=== PATIENT | female | born 1985 | race Caucasian/White ===

== ENCOUNTER 2017-03-03 12:27 | Emergency (ER) | payer BC, OTHER ==
[2017-03-03 12:43] VITALS: TEMP 98.6
--- NOTE | 2017-03-03 12:56 | ED ---
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 States it was a small isolated shaft where someone was power washing in painting. States was lots of fumes. States there were down there for approximately 20-30 minutes. States upon eating back up to the surface area had slight headache. Still admits to headache at this time. Denies any other complaints or symptoms. States that flared crew arrived after them did have a CO2 monitor which did go off. [facility] work required her partner to come here to be checked. Patient denies any recent fever, chills, shortness of breath, chest pain, back pain, abdominal pain, nausea or vomiting, numbness or tingling, dysuria or hematuria, constipation or diarrhea, visual changes, or any other complaints. - Related Data Previous Rx's Medication Instructions Recorded Lidocaine Viscous [Xylocaine 5 ml PO Q3HR PRN #100 ml 09/17/15 Viscous 2%] Penicillin V Potassium [Pen Vee K] 500 mg PO QID #28 tab 09/17/15 Allergies Allergy/AdvReac Type Severity Reaction Status Date / Time No Known Allergies Allergy Verified 03/03/17 12:42 Review of Systems ROS Statement: Those systems with pertinent positive or pertinent negative responses have been documented in the HPI. ROS Other: All systems not noted in ROS Statement are negative. Past Medical History Past Medical History: No Reported History History of Any Multi-Drug Resistant Organisms: None Reported Past Surgical History: Orthopedic Surgery Past Psychological History: No Psychological Hx Reported Smoking Status: Current every day smoker Past Alcohol Use History: None Reported Past Drug Use History: None Reported General Exam - General Exam Comments Initial Comments: General: The patient is awake and alert, in no distress, and does not appear acutely ill. Eye: Pupils are equal, round and reactive to light, extra-ocular movements are intact. No nystagmus. There is normal conjunctiva bilaterally. No signs of icterus. Ears, nose, mouth and throat: There are moist mucous membranes and no oral lesions. Neck: The neck is supple, there is no tenderness or JVD. Cardiovascular: There is a regular rate and rhythm. No murmur, rub or gallop is appreciated. Respiratory: Lungs are clear to auscultation, respirations are non-labored, breath sounds are equal. No wheezes, stridor, rales, or rhonchi. Musculoskeletal: Normal ROM, no tenderness. Strength 5/5. Sensation intact. Pulses equal bilaterally 2+. Neurological: A&O x 3. CN II-XII intact, There are no obvious motor or sensory deficits. Coordination appears grossly intact. Speech is normal. Skin: Skin is warm and dry and no rashes or lesions are noted. Psychiatric: Cooperative, appropriate mood & affect, normal judgment. Limitations: no limitations Course Vital Signs 03/03/17 03/03/17 03/03/17 12:40 12:48 13:05 Temperature 98.6 F Pulse Rate 80 70 Respiratory 18 16 Rate Blood Pressure 122/66 134/74 O2 Sat by Pulse 99 100 98 Oximetry Medical Decision Making - Medical Decision Making Patient's carboxyhemoglobin level were 4.9 and emergency room. Patient was on oxygen while lab is pending. She reexamined at this time shows no signs of stress states she is feeling better. Will be discharged home. Advised return for any concerns. - Lab Data Lab Results 03/03/17 Range/Units 13:05 Carbon Monoxide, Quant 4.9 (<10.0) % Disposition Clinical Impression: Carbon monoxide exposure Disposition: HOME SELF-CARE Condition: Good Instructions: Carbon Monoxide Poisoning (ED) Additional Instructions: Please use medication as discussed. Please follow-up with family doctor in the next 2 days of symptoms have not improved. Please return to emergency room if the symptoms increase or worsen or for any other concerns. Referrals: Nava Moncada DO [Primary Care Provider] - 1-2 days Time of Disposition: 13:42
[2017-03-03 13:06] VITALS: BP 134/74; PULSE 70; RESP 16
== END 2017-03-03 13:47 | disposition home or self-care (01) ==
LOC: EC 12:27
DX: R51 Headache (principal); Z57.5 Occupational exposure to toxic agents in other industries; F17.200 Nicotine dependence, unspecified, uncomplicated
CPT/HCPCS: 82375; 99283

== ENCOUNTER 2017-08-21 12:30 | Outpatient (CLI) | payer BC ==
[2017-08-21 12:56] VITALS: BP 110/57; PULSE 103; RESP 18; TEMP 98.2
[2017-08-21] MEDS ORDERED: ONDANSETRON 4 MG/2 ML VIAL IVP STA (13:08)
[2017-08-21] MEDS: LACTATED RINGERS 1,000 ML IV SCH ×2 (13:09→13:38)
[2017-08-21 13:18] LABS: Basophils % (A) 0 %; CH 30.1; CHCM 32.8; Eosinophils # (A) 0.1 k/uL (0-0.7); Eosinophils % (A) 1 %; HCT 34.9 % (34.0-46.0); HDW 2.24; HGB 11.2 gm/dL (11.4-16.0); Luc # (Auto) 0.12; Luc % (Auto) 1; Lymphocytes # (A) 1.1 k/uL (1.0-4.8); Lymphocytes % (A) 12 %; MCH 29.7 pg (25.0-35.0); MCHC 32.2 g/dL (31.0-37.0); MCV 92.3 fL (80.0-100.0); Mean Platelet Volume 7.1; Monocytes # (A) 0.6 k/uL (0-1.0); Monocytes % (A) 6 %; Neutrophils # (A) 7.2 k/uL (1.3-7.7); Neutrophils % (A) 79 %; RBC 3.78 m/uL (3.80-5.40); RDW 14.7 % (11.5-15.5); WBC 9.1 k/uL (3.8-10.6); WBC (Perox) 9.38
--- NOTE | 2017-08-30 13:04 | P.MSEPDOC ---
Presenting Problems - Arrival Data Date of Arrival on Unit: 08/21/17 Time of Arrival on Unit: 12:30 Mode of Transport: Ambulatory - Complaint OB-Reason for Admission/Chief Complaint: Possible Onset of Labor, Acute Nausea/ Vomiting Comment: 08/20 1500 cramping Medical History - Information : 3 Para: 2 Term: 2 : 0 Abortions: Spontaneous or Elective: 0 Number of Living Children: 2 - Gestational Age Gestational Age by GARETH (wks/days): 22 Weeks and 1 Days Review of Systems - Review of Systems Constitutional: No problems Breast: No problems ENT: No problems Cardiovascular: No problems Respiratory: No problems Gastrointestinal: No problems Genitourinary: No problems Musculoskeletal: No problems Neurological: Dizziness Skin: No problems Vital Signs - Temperature Temperature: 98.2 F Temperature Source: Temporal Artery Scan - Pulse Right Pulse Rate: 103 Pulse Assessment Method: Automatic Cuff - Respirations Respiratory Rate: 18 Oxygen Delivery Method: Room Air O2 Sat by Pulse Oximetry: 100 - Blood Pressure Right Arm Blood Pressure: 110/57 Blood Pressure Mean: 74 Blood Pressure Source: Automatic Cuff Medical Screen Scoring (Pre) - Cervical Exam Dilation: Exam Deferred - Uterine Contractions Frequency: N/A Duration: N/A Intensity: N/A - Maternal Vital Signs Maternal Temperature: N/A Maternal Blood Pressure: N/A Signs of Preeclampsia: N/A Maternal Respirations: N/A - Pain Assessment Pain Location and Character: Abdomen Pain Scale Used: Numeric (1 - 10) Pain Intensity: 5 Pain Description: *Acute, Cramping Pain Frequency: Intermittent Pain Duration: 1 Pain Duration Units: Days Pain Behavior: Facial Grimacing, Nausea Pain Aggravating Factors: Activity, Contractions Non-Pharmacological Interventions: Darkened Room, Emotional/Spiritual Support, Reduce Environmental Stimuli, Relaxation Technique - Maternal Trauma Maternal Trauma: N/A - Assessment Baseline FHR: 140 Heart Rate - NICHD Category: Category I (Normal) = 0 Position: N/A Station: N/A - Total Score Total Score (Pre): 0 - Level of Risk Level of Risk: Low (0-5) Medical Screen Scoring (Post) - Maternal Trauma Maternal Trauma: N/A - Assessment Heart Rate - NICHD Category: Category I (Normal) = 0 - Total Score Total Score (Post): 0 - Post Treatment Level of Risk Post Treatment Level of Risk: Low (0-5) Physician Notification (Post) - Physician Notified Physician Notified Date: 08/21/17 Physician Notified Time: 14:14 Spoke With: Dane New Order Received: Yes (finish fluids and d/c if feeling better) - Notification Comment Comment: nausea/vomit cramping, fluids, cbc wnl, could not provide UA Disposition - Disposition OB Disposition: Triage, Discharge to home, Written follow up instructions reviewed Discharge Date: 08/21/17 Discharge Time: 14:50 I agree with the RN Medical Screening Exam: Yes Risk & Benefit of care provided described in d/c instruction: Yes Diagnosis: VOMITING OF , UNSPECIFIED
== END 2017-08-21 14:50 | disposition home or self-care (01) ==
LOC: FBPOP 12:30
PROVIDERS: ATTEND Obstetrics & Gynecology
DX: O21.9 Vomiting of pregnancy, unspecified (principal); Z3A.22 22 weeks gestation of pregnancy
CPT/HCPCS: 99214; 96360; 96361; 96375; 85025; J2405

== ENCOUNTER 2017-12-15 23:25 | Outpatient (CLI) | payer BC ==
[2017-12-15 23:53] VITALS: BP 131/65; PULSE 113; RESP 16; TEMP 97.9
[2017-12-16] MEDS ORDERED: BUTORPHANOL 1 MG/ML 1 ML VIAL IV PRN (01:35)
[2017-12-16] MEDS ORDERED: LACTATED RINGERS 1,000 ML IV SCH (01:45)
--- NOTE | 2017-12-28 11:00 | P.MSEPDOC ---
Presenting Problems - Arrival Data Date of Arrival on Unit: 12/15/17 Time of Arrival on Unit: 23:23 Mode of Transport: Wheelchair - Complaint OB-Reason for Admission/Chief Complaint: Possible Onset of Labor Comment: Pt states contractions became every 4-6 mins around 1630 tonight and have increased in intensity since 2029 Medical History - Information : 3 Para: 2 Term: 2 : 0 Abortions: Spontaneous or Elective: 0 Number of Living Children: 2 - Gestational Age Gestational Age by GARETH (wks/days): 38 Weeks and 5 Days Review of Systems - Review of Systems Constitutional: No problems Breast: No problems ENT: No problems Cardiovascular: No problems Respiratory: No problems Gastrointestinal: No problems Genitourinary: No problems Musculoskeletal: No problems Neurological: No problems Skin: No problems Vital Signs - Temperature Temperature: 97.9 F Temperature Source: Temporal Artery Scan - Pulse Pulse Oximetery Pulse Rate: 113 Pulse Assessment Method: Pulse Oximetry - Respirations Respiratory Rate: 16 Oxygen Delivery Method: Room Air O2 Sat by Pulse Oximetry: 97 - Blood Pressure Right Arm Blood Pressure: 131/65 Blood Pressure Mean: 87 Blood Pressure Source: Automatic Cuff Medical Screen Scoring (Pre) - Cervical Exam Dilation: 1-3 cm = 1 Membranes: Intact - Uterine Contractions Frequency: > or = 36 weeks =2 Duration: N/A Intensity: N/A - Maternal Vital Signs Maternal Temperature: N/A Maternal Blood Pressure: N/A Signs of Preeclampsia: N/A Maternal Respirations: N/A - Pain Assessment Pain Location and Character: Abdomen Pain Scale Used: Numeric (1 - 10) Pain Intensity: 7 Pain Management Goal: 2 Pain Description: *Acute Pain Radiation Location: lower back Pain Frequency: Intermittent Pain Duration: 7 Pain Duration Units: Hours Pain Behavior: Facial Grimacing, Fidgeting, Vocalization Pain Aggravating Factors: Contractions - Maternal Trauma Maternal Trauma: N/A - Assessment Baseline FHR: 135 Heart Rate - NICHD Category: Category I (Normal) = 0 NST: Reactive Position: N/A Station: N/A - Total Score Total Score (Pre): 3 - Level of Risk Level of Risk: Low (0-5) Physician Notification (Pre) - Physician Notified Physician Notified Date: 12/16/17 Physician Notified Time: 00:43 Physician/Practitioner Notifed:: Lensmeyer New Order Received: Yes Medical Screen Scoring (Post) - Cervical Exam Dilation: 1-3 cm = 1 Membranes: Intact - Uterine Contractions Frequency: > 5 minutes apart = 1 Duration: N/A Intensity: N/A - Maternal Vital Signs Maternal Temperature: N/A Maternal Blood Pressure: N/A Signs of Preeclampsia: N/A Maternal Respirations: N/A - Pain Assessment Pain Location and Character: Back, Abdomen Pain Scale Used: Numeric (1 - 10) Pain Intensity: 5 Pain Management Goal: 2 Pain Description: *Acute Pain Radiation Location: lower back Pain Frequency: Intermittent Pain Duration: 12 Pain Duration Units: Hours Pain Behavior: Decreased Sleep, Fidgeting, Moving Slowly Pain Aggravating Factors: Contractions - Maternal Trauma Maternal Trauma: N/A - Assessment Heart Rate: 135 Heart Rate - NICHD Category: Category I (Normal) = 0 NST: Reactive Position: N/A Station: N/A - Total Score Total Score (Post): 2 - Post Treatment Level of Risk Post Treatment Level of Risk: Low (0-5) Physician Notification (Post) - Physician Notified Physician Notified Date: 12/16/17 Physician Notified Time: 04:00 Physician/Practitioner Notified:: Dr Munguia - Notification Comment Comment: Edward given Disposition - Disposition OB Disposition: Discharge to home Discharge Date: 12/16/17 Discharge Time: 04:10 I agree with the RN Medical Screening Exam: Yes Risk & Benefit of care provided described in d/c instruction: Yes Diagnosis: FALSE LABOR AT OR AFTER 37 COMPLETED WEEKS OF GESTATION
== END 2017-12-16 04:10 | disposition home or self-care (01) ==
LOC: FBPOP 23:25
PROVIDERS: ATTEND Obstetrics & Gynecology
DX: O47.1 False labor at or after 37 completed weeks of gestation (principal); Z3A.38 38 weeks gestation of pregnancy
CPT/HCPCS: 59025; 99214; 96360; 96361; 96375; J0595

== ENCOUNTER 2017-12-16 20:35 | Outpatient (CLI) | payer BC ==
[2017-12-16 21:03] VITALS: BP 120/79; PULSE 88; RESP 18; TEMP 97.4
--- NOTE | 2017-12-29 16:45 | P.MSEPDOC ---
Presenting Problems - Arrival Data Date of Arrival on Unit: 12/16/17 Time of Arrival on Unit: 20:36 Mode of Transport: Wheelchair - Complaint OB-Reason for Admission/Chief Complaint: Possible Onset of Labor Comment: pt states contx all day today. Medical History - Information : 3 Para: 2 Term: 2 : 0 Abortions: Spontaneous or Elective: 0 Number of Living Children: 2 - Gestational Age Gestational Age by GARETH (wks/days): 38 Weeks and 5 Days Review of Systems - Review of Systems Constitutional: No problems Breast: No problems ENT: No problems Cardiovascular: No problems Respiratory: No problems Gastrointestinal: No problems Genitourinary: No problems Musculoskeletal: No problems Neurological: No problems Skin: No problems Vital Signs - Temperature Temperature: 97.4 F Temperature Source: Temporal Artery Scan - Pulse Right Sitting Brachial Pulse Rate: 88 Pulse Assessment Method: Automatic Cuff - Respirations Respiratory Rate: 18 Oxygen Delivery Method: Room Air O2 Sat by Pulse Oximetry: 100 - Blood Pressure Right Arm Sitting Blood Pressure: 120/79 Blood Pressure Mean: 92 Blood Pressure Source: Automatic Cuff Medical Screen Scoring (Pre) - Cervical Exam Dilation: 1-3 cm = 1 Effacement: More than 50% = 2 Membranes: Intact - Uterine Contractions Frequency: > 5 minutes apart = 1 Duration: N/A Intensity: N/A - Maternal Vital Signs Maternal Temperature: N/A Maternal Blood Pressure: N/A Signs of Preeclampsia: N/A Maternal Respirations: N/A - Pain Assessment Pain Location and Character: Lower, Abdomen Pain Scale Used: Numeric (1 - 10) Pain Intensity: 7 Pain Management Goal: 4 Pain Description: *Acute, Aching, Cramping Pain Radiation Location: n/a Pain Frequency: Frequent Pain Duration: 24 Pain Duration Units: Hours Pain Behavior: Facial Grimacing, Moving Slowly, Vocalization Pain Aggravating Factors: Activity - Assessment Baseline FHR: 130 Heart Rate - NICHD Category: Category I (Normal) = 0 NST: Reactive Position: N/A Station: N/A - Total Score Total Score (Pre): 4 - Level of Risk Level of Risk: Low (0-5) Physician Notification (Pre) - Physician Notified Physician Notified Date: 12/16/17 Medical Screen Scoring (Post) - Cervical Exam Dilation: 1-3 cm = 1 Membranes: Intact - Uterine Contractions Frequency: > or = 36 weeks =2 Duration: > 40 seconds = 2 Intensity: N/A - Maternal Vital Signs Maternal Temperature: N/A Signs of Preeclampsia: N/A Maternal Respirations: N/A - Maternal Trauma Maternal Trauma: N/A - Assessment Heart Rate: 130 Heart Rate - NICHD Category: Category I (Normal) = 0 NST: Reactive Position: N/A - Total Score Total Score (Post): 5 - Post Treatment Level of Risk Post Treatment Level of Risk: Low (0-5) Physician Notification (Post) - Physician Notified Physician Notified Date: 12/16/17 Physician Notified Time: 22:01 Physician/Practitioner Notified:: Dr Vela - Notification Comment Comment: reported on pts c/o cntrx for 2 days, was here in triage for several hours last night with no cervical change, and no cervical change as of now either. reported on vitals, fhts reactive, cntrx pattern, vag exam. pt does not want to stay for the night again with pain meds. pt either wants to be admitted or go home, per her. Orders to d/c home at this time, and follow up as needed, or scheduled appt Mon Disposition - Disposition OB Disposition: Discharge to home Discharge Date: 12/16/17 Discharge Time: 22:15 I agree with the RN Medical Screening Exam: Yes Risk & Benefit of care provided described in d/c instruction: Yes Diagnosis: FALSE LABOR, UNSPECIFIED
== END 2017-12-16 22:15 | disposition home or self-care (01) ==
LOC: FBPOP 20:35
PROVIDERS: ATTEND Obstetrics & Gynecology
DX: O47.1 False labor at or after 37 completed weeks of gestation (principal); Z3A.38 38 weeks gestation of pregnancy
CPT/HCPCS: 59025; 99213

== ENCOUNTER 2017-12-22 06:00 | Inpatient (IN) | payer BC ==
[2017-12-22] MEDS ORDERED: TERBUTALINE 1 MG/ML VIAL SQ PRN (06:52)
[2017-12-22] MEDS ORDERED: METHYLERGONOVINE 0.2 MG/ML 1 ML AMP IM PRN (06:52)
[2017-12-22] MEDS ORDERED: CARBOPROST TROMETHAMINE 250 MCG/ML 1 ML AMP IM PRN (06:52)
[2017-12-22] MEDS ORDERED: LIDOCAINE 1% (PF) 10 MG/ML (30 ML SDV) SQ PRN (06:52)
[2017-12-22] MEDS ORDERED: OXYTOCIN 10 UNIT/ML 1 ML VIAL IM PRN (06:52)
[2017-12-22] MEDS ORDERED: OXYTOCIN 20 UNITS/1000 ML NS 1,000 ML IV SCH ×2 (07:00→18:00)
[2017-12-22] MEDS: LACTATED RINGERS 1,000 ML IV SCH ×2 (07:00→14:43)
[2017-12-22 07:16] LABS: Basophils # (A) 0.1 k/uL (0-0.2); Basophils % (A) 1 %; Eosinophils # (A) 0.2 k/uL (0-0.7); Eosinophils % (A) 2 %; HCT 31.5 % (34.0-46.0); HGB 10.4 gm/dL (11.4-16.0); Lymphocytes # (A) 2.8 k/uL (1.0-4.8); Lymphocytes % (A) 23 %; MCH 28.9 pg (25.0-35.0); MCHC 33.1 g/dL (31.0-37.0); MCV 87.5 fL (80.0-100.0); Mean Platelet Volume 7.9; Monocytes # (A) 0.8 k/uL (0-1.0); Monocytes % (A) 7 %; Neutrophils # (A) 7.8 k/uL (1.3-7.7); Neutrophils % (A) 65 %; Platelet Count 288 k/uL (150-450); RDW 13.2 % (11.5-15.5)
[2017-12-22 07:45] VITALS: RESP 16; BMI 28.1
--- NOTE | 2017-12-22 08:51 | P.HPOB ---
History of Present Illness H&P Date: 12/22/17 Chief Complaint: 39-4/7 weeks, elective induction of labor The patient is a 32-year-old 3 para 2 scissors or 2 admitted at 39-4/7 weeks as a stat was by last menstrual period and confirming 19 week ultrasound. She is admitted for an elective induction of labor with a favorable cervix. She's had a significant amount of contractions over the last several weeks and expressed significant discomfort and then requested elective induction. Her has been entirely uncomplicated and group B strep status is negative. Obstetrical history 3 para 2001 with 2 term vaginal deliveries without complications. Current statistics are listed in history of present illness. EDC of 12/25/2017 was established by last menstrual period and confirmed by 19 week ultrasound. Laboratory workup demonstrates a blood type of O+ with a negative antibody screen. Rubella status is immune. The remainder of the laboratory workup was within normal limits. One hour Glucola was normal and group B strep status is negative. Gynecologic history is unremarkable with no history of any infections to include STDs. Review of Systems Review of systems is confined to history of present illness. Past Medical History Past Medical History: No Reported History History of Any Multi-Drug Resistant Organisms: None Reported Past Surgical History: Orthopedic Surgery Past Anesthesia/Blood Transfusion Reactions: No Reported Reaction Past Psychological History: No Psychological Hx Reported Smoking Status: Never smoker Past Alcohol Use History: None Reported Past Drug Use History: None Reported - Past Family History Father Family Medical History: Blood Disorder, Cancer Medications and Allergies Home Medications Medication Instructions Recorded Confirmed Type Pnv No.95/Ferrous Fum/Folic AC 1 each PO DAILY 08/21/17 12/22/17 History [ Multivitamin Tablet] Allergies Allergy/AdvReac Type Severity Reaction Status Date / Time No Known Allergies Allergy Verified 12/22/17 06:52 Exam - Vital Signs Vital signs: Vital Signs Temp Pulse Resp BP 12/22/17 06:51 97.1 F L 79 16 110/64 Intake and Output 12/21/17 12/22/17 12/22/17 22:59 06:59 14:59 Other: Weight 67.585 kg In general, this is a well-developed, well-nourished white female in no acute distress. Her heart has a regular rhythm and rate without murmur. Her lungs are clear to auscultation bilaterally in all buchanan. Her abdomen is gravid, nondistended, has normal active bowel sounds, is soft, nontender, and without any palpable masses aside from the uterine fundus. Her extremities are without any cyanosis, clubbing, or significant edema and are nontender to palpation bilaterally. Digital cervical examination demonstrates her surgery approximate 3 cm dilated, 50% effaced, the vertex in presentation at -2 station. Artificial rupture of membranes is carried out demonstrating clear fluid. Results Result Diagrams: 12/22/17 07:00 Abnormal Lab Results - Last 24 Hours (Table) 12/22/17 Range/Units 07:00 WBC 12.0 H (3.8-10.6) k/uL RBC 3.60 L (3.80-5.40) m/uL Hgb 10.4 L (11.4-16.0) gm/dL Hct 31.5 L (34.0-46.0) % Neutrophils # 7.8 H (1.3-7.7) k/uL Assessment and Plan (1) Term Current Visit: Yes Status: Acute Code(s): Z34.80 - ENCOUNTER FOR SUPRVSN OF NORMAL , UNSP TRIMESTER SNOMED Code(s): 36541390 Plan: The patient is admitted for an elective induction of labor. The potential slightly increased risk for delivery and an elective circumstance has been discussed and the patient has understood and agreed to proceed. As result , Pitocin augmentation has been started and she has undergone artificial rupture of membranes. She will have close maternal and surveillance and expectant management will be practiced. She is a good candidate for either IV or epidural analgesia, whichever she may choose.
[2017-12-22] MEDS ORDERED: BUTORPHANOL 1 MG/ML 1 ML VIAL IV PRN (08:52)
[2017-12-22] MEDS ORDERED: SIMETHICONE 80 MG CHEWABLE PO PRN (17:46)
[2017-12-22] MEDS ORDERED: Acetaminophen-Codeine 300-30mg TAB PO PRN ×2 (17:46)
[2017-12-22] MEDS ORDERED: diphenhydrAMINE 50 MG CAP PO PRN (17:46)
[2017-12-22] MEDS ORDERED: diphenhydrAMINE 50 MG/ML 1 ML VIAL IVP PRN ×2 (17:46)
[2017-12-22] MEDS ORDERED: LANOLIN CREAM 5 GM TUBE TOPICAL PRN (17:46)
[2017-12-22] MEDS ORDERED: diphenhydrAMINE 25 MG CAP PO PRN (17:46)
[2017-12-22] MEDS ORDERED: ACETAMINOPHEN TAB 325 MG TAB PO PRN (17:46)
[2017-12-22] MEDS ORDERED: BENZOCAINE/MENTHOL SPRAY 1 GM/SPRAY AEROSOL TOPICAL PRN (17:46)
[2017-12-22] MEDS ORDERED: HYDROCORTISONE 2.5% RECTAL CREAM 30 GM TUBE RECTAL PRN (17:46)
[2017-12-22] MEDS ORDERED: ZOLPIDEM 5 MG TAB PO PRN (17:46)
[2017-12-22] MEDS ORDERED: WITCH HAZEL 1 EACH MED..PAD TOPICAL PRN (17:46)
--- NOTE | 2017-12-22 17:49 | P.PROBDLV ---
Vaginal Delivery Note - . Vaginal Delivery Note: The patient is a 32-year-old 3 para 2001 admitted at 39-4/7 weeks by good dating parameters. She is admitted for elective induction with all signs reassuring. Her has been entirely uncomplicated and group B strep status is negative. On labor and delivery, she had Pitocin started and underwent artificial rupture of membranes demonstrating clear fluid. She made relatively slow progress through the latent phase of labor but then fairly quickly progressed from 5 cm dilation to complete. She pushed over the course of approximately 2-3 contractions to a normal spontaneous vaginal delivery of a viable 7 lbs. 14 oz. baby boy with Apgars of 9 at 1 minute and 9 at 5 minutes delivered in the left occiput anterior position. The placenta was delivered spontaneously, intact, and grossly normal with a grossly normal centrally inserted three-vessel cord. There were no lacerations the perineum, vagina, or cervix. There were no complications. All sponge, instrument, and needle counts were correct. Both mother and infant are resting comfortably in recovery.
[2017-12-22] MEDS: IBUPROFEN 600 MG TAB PO PRN (20:33)
[2017-12-22] MEDS: SENNOSIDES-DOCUSATE SODIUM 1 EACH TAB PO SCH (21:37)
[2017-12-23] MEDS: LACTATED RINGERS 1,000 ML IV SCH (04:30)
[2017-12-23] MEDS: IBUPROFEN 600 MG TAB PO PRN (08:19)
[2017-12-23] MEDS: SENNOSIDES-DOCUSATE SODIUM 1 EACH TAB PO SCH (08:19)
--- NOTE | 2017-12-23 08:35 | P.DS ---
Providers Date of admission: 12/22/17 06:46 Expected date of discharge: 12/23/17 Attending physician: Tay Munguia Primary care physician: Stated None - Discharge Diagnosis(es) (1) Term Current Visit: Yes Status: Acute (2) Normal spontaneous vaginal delivery Current Visit: Yes Status: Acute Hospital Course: The patient is a 32-year-old 3 para 2001 admitted at 39-4/7 weeks by good dating parameters. She is admitted for elective induction of labor with a favorable cervix. Her was uncomplicated and group B strep status is negative. on labor and delivery, she had Pitocin started followed by artificial rupture of membranes. She made relatively slow progress through the latent phase of labor but then progressed fairly quickly through the active phase of labor to complete. She pushed very quickly thereafter to a normal spontaneous vaginal delivery of a viable 7 lbs. 14 oz. baby boy with Apgars of 9 at 1 minute and 9 at 5 minutes. Her course was unremarkable with vital signs remaining stable and her temperature was afebrile throughout. She is deemed stable for discharge by day #1 was discharged home to follow- up in the office in 6 weeks' time routinely. Discharge instructions included calling for any significantly increased bleeding or foul-smelling lochia, significantly increased fever or abdominal pain, perineal complaints, breast complaints, or anything else that concerned her. She was additionally instructed to have nothing in the vagina for at least 6 weeks time to include intercourse. She understood her instructions and agrees to follow up as noted above. Discharge medications included continued vitamins as she has opted to breast-feed. She additionally was to use [id number] analgesic pain medications as necessary. Maternal blood type is O+ and rubella status is immune. Procedures: #1. Pitocin induction #2. Artificial rupture of membranes #3. Normal spontaneous vaginal delivery Patient Condition at Discharge: Good Plan - Discharge Summary New Discharge Prescriptions: No Action Pnv No.95/Ferrous Fum/Folic AC [ Multivitamin Tablet] 1 each PO DAILY Discharge Medication List Pnv No.95/Ferrous Fum/Folic AC [ Multivitamin Tablet] 1 each PO DAILY [History] Follow up Appointment(s)/Referral(s): Tay Munguia MD [STAFF PHYSICIAN] - 6 Weeks Discharge Disposition: HOME SELF-CARE
[2017-12-23] MEDS ORDERED: IBUPROFEN 600 MG TAB PO ONE (13:00)
[2017-12-23 16:25] VITALS: BP 112/65; PULSE 78; TEMP 98.4
== END 2017-12-23 18:35 | disposition home or self-care (01) | DRG 775 ==
LOC: 4FBP 06:46
PROVIDERS: ADMIT Obstetrics & Gynecology; ATTEND Obstetrics & Gynecology
PROC: 3E033VJ Introduction of Other Hormone into Peripheral Vein, Percutaneous Approach (ICD-10-PCS; principal; 2017-12-22)
PROC: 10907ZC Drainage of Amniotic Fluid, Therapeutic from Products of Conception, Via Natural or Artificial Opening (ICD-10-PCS; principal; 2017-12-22)
PROC: 10E0XZZ Delivery of Products of Conception, External Approach (ICD-10-PCS; principal; 2017-12-22)
DX: O80 Encounter for full-term uncomplicated delivery (principal); Z37.0 Single live birth; Z3A.39 39 weeks gestation of pregnancy
CPT/HCPCS: 85025; 88307

== ENCOUNTER 2019-03-16 06:30 | Inpatient (IN) | payer BC ==
[2019-03-16] MEDS ORDERED: METHYLERGONOVINE 0.2 MG/ML 1 ML AMP IM PRN (06:52)
[2019-03-16] MEDS ORDERED: OXYTOCIN 10 UNIT/ML 1 ML VIAL IM PRN (06:52)
[2019-03-16] MEDS ORDERED: CARBOPROST TROMETHAMINE 250 MCG/ML 1 ML AMP IM PRN (06:52)
[2019-03-16] MEDS ORDERED: LIDOCAINE 0.5% (PF) 5 MG/ML (50 ML SDV) SQ PRN (06:52)
[2019-03-16] MEDS ORDERED: TERBUTALINE 1 MG/ML VIAL SQ PRN (06:52)
[2019-03-16] MEDS ORDERED: OXYTOCIN 30 UNITS/500 ML NS 30 UNIT in SALINE 1 500ML.BAG IV SCH (07:00)
[2019-03-16 07:07] LABS: Basophils # (A) 0.1 k/uL (0-0.2); Basophils % (A) 0 %; Eosinophils # (A) 0.3 k/uL (0-0.7); Eosinophils % (A) 2 %; HCT 31.9 % (34.0-46.0); HGB 10.5 gm/dL (11.4-16.0); Lymphocytes # (A) 2.7 k/uL (1.0-4.8); Lymphocytes % (A) 22 %; MCH 28.6 pg (25.0-35.0); MCHC 33.1 g/dL (31.0-37.0); MCV 86.5 fL (80.0-100.0); Mean Platelet Volume 8.2; Monocytes # (A) 0.8 k/uL (0-1.0); Monocytes % (A) 6 %; Neutrophils # (A) 8.3 k/uL (1.3-7.7); Neutrophils % (A) 67 %; Platelet Count 321 k/uL (150-450); RBC 3.69 m/uL (3.80-5.40); WBC 12.4 k/uL (3.8-10.6)
[2019-03-16] MEDS: LACTATED RINGERS 1,000 ML IV SCH ×2 (07:23→14:20)
[2019-03-16 07:38] VITALS: BMI 27.9
[2019-03-16] MEDS ORDERED: BUTORPHANOL 1 MG/ML 1 ML VIAL IV PRN (08:34)
--- NOTE | 2019-03-16 08:38 | P.HPOB ---
History of Present Illness H&P Date: 03/16/19 Chief Complaint: 40-0/7 weeks, induction The patient is a 33-year-old 4 para 3003 admitted at 40-0/7 weeks as established by 6 week ultrasound. She is admitted for elective induction with all signs reassuring and a favorable cervix. Her has been entirely uncomplicated and group B strep status is negative. Obstetrical history: 4 para 3003 with 3 term vaginal deliveries without complications. Current statistics are listed in history of present illness. EDC of 03/16/2019 was established by a 6 week ultrasound. Laboratory workup demonstrates a blood type of O+ with a negative antibody screen. Rubella status is immune. Remainder of the laboratory workup was within normal limits. Second trimester Glucola was normal and group B strep status is negative. Gynecologic history: Unremarkable with no history of any infections to include STDs. Review of Systems Review of systems is confined to history of present illness. Past Medical History Past Medical History: No Reported History History of Any Multi-Drug Resistant Organisms: None Reported Past Surgical History: Orthopedic Surgery Past Anesthesia/Blood Transfusion Reactions: No Reported Reaction Past Psychological History: No Psychological Hx Reported Smoking Status: Never smoker Past Alcohol Use History: None Reported Past Drug Use History: None Reported - Past Family History Father Family Medical History: Blood Disorder, Cancer Medications and Allergies Home Medications Medication Instructions Recorded Confirmed Type Pnv No.95/Ferrous Fum/Folic AC 1 each PO DAILY 08/21/17 03/16/19 History [ Multivitamin Tablet] Allergies Allergy/AdvReac Type Severity Reaction Status Date / Time No Known Allergies Allergy Verified 12/22/17 06:52 Exam Vital Signs Temp Pulse Resp BP 03/16/19 06:49 97.2 F L 85 16 146/64 Intake and Output 03/15/19 03/16/19 03/16/19 22:59 06:59 14:59 Other: Weight 67.132 kg In general, this is a well-developed, well-nourished white female in no acute distress. Her heart has a regular rhythm and rate without murmur. Her lungs are clear to auscultation bilaterally in all buchanan. Her abdomen is gravid, nondistended, has normal active bowel sounds, is soft, nontender, and without any palpable masses aside from uterine fundus. Her extremities are without any cyanosis, clubbing, or edema and are nontender to palpation bilaterally. Dig ital cervical examination demonstrates discharged to be 3 cm dilated, 50% effaced, the vertex in presentation at -2 station. Artificial rupture of membranes is carried out demonstrating clear fluid. Results Result Diagrams: 03/16/19 07:00 Abnormal Lab Results - Last 24 Hours (Table) 03/16/19 Range/Units 07:00 WBC 12.4 H (3.8-10.6) k/uL RBC 3.69 L (3.80-5.40) m/uL Hgb 10.5 L (11.4-16.0) gm/dL Hct 31.9 L (34.0-46.0) % Neutrophils # 8.3 H (1.3-7.7) k/uL Assessment and Plan (1) Term Current Visit: Yes Status: Acute Code(s): Z34.80 - ENCOUNTER FOR SUPRVSN OF NORMAL , UNSP TRIMESTER SNOMED Code(s): 05986160 Plan: The patient is admitted for elective induction of labor with a favorable cervix. She understands that there is a potentially slightly increased risk for delivery. She has had Pitocin augmentation started and undergone artificial rupture of membranes for clear fluid. She will have close maternal and surveillance and expectant management will be practiced. She is a good candidate for either IV or epidural analgesia, whichever she may choose.
[2019-03-16] MEDS ORDERED: HYDROcodone/APAP 7.5-325MG 1 EACH TAB PO PRN (15:59)
[2019-03-16] MEDS ORDERED: SIMETHICONE 80 MG CHEWABLE PO PRN (15:59)
[2019-03-16] MEDS ORDERED: ACETAMINOPHEN TAB 325 MG TAB PO PRN (15:59)
[2019-03-16] MEDS ORDERED: diphenhydrAMINE 50 MG/ML 1 ML VIAL IVP PRN ×2 (15:59)
[2019-03-16] MEDS ORDERED: diphenhydrAMINE 25 MG CAP PO PRN (15:59)
[2019-03-16] MEDS ORDERED: IBUPROFEN 600 MG TAB PO PRN (15:59)
[2019-03-16] MEDS ORDERED: diphenhydrAMINE 50 MG CAP PO PRN (15:59)
[2019-03-16] MEDS ORDERED: WITCH HAZEL 1 EACH MED..PAD TOPICAL PRN (15:59)
[2019-03-16] MEDS ORDERED: HYDROcodone/APAP 5-325MG 1 EACH TAB PO PRN (15:59)
[2019-03-16] MEDS ORDERED: HYDROCORTISONE 2.5% RECTAL CREAM 30 GM TUBE RECTAL PRN (15:59)
[2019-03-16] MEDS ORDERED: ZOLPIDEM 5 MG TAB PO PRN (15:59)
[2019-03-16] MEDS ORDERED: LANOLIN CREAM 5 GM TUBE TOPICAL PRN (15:59)
[2019-03-16] MEDS ORDERED: BENZOCAINE/MENTHOL SPRAY 1 GM/SPRAY AEROSOL TOPICAL PRN (15:59)
[2019-03-16] MEDS ORDERED: OXYTOCIN 20 UNITS/1000 ML NS 1,000 ML IV SCH (16:00)
--- NOTE | 2019-03-16 16:01 | P.PROBDLV ---
Vaginal Delivery Note - . Vaginal Delivery Note: The patient is a 33-year-old 4 para 3003 admitted at 40-0/7 weeks by good dating parameters for elective induction of labor with all signs reassuring. Her has been uncomplicated and group B strep status is negative. On labor and delivery, she underwent Pitocin augmentation and had artificial rupture of membranes carried out demonstrating clear fluid. She made relatively slow progress through the latent phase of labor but then progressed very quickly through the active phase of labor to complete after which time she pushed over the course of 1-2 contractions to a normal spontaneous vaginal delivery of a viable 7 lbs. 0 oz. baby girl with Apgars of 8 at 1 minute and 9 at 5 minutes delivered in the right occiput anterior position. There was a loose nuchal cord 1 which was reduced following delivery of the infant. The placenta was delivered spontaneously, intact, and grossly normal with a grossly normal, centrally inserted three-vessel cord. There were no lacerations of the perineum, vagina, or cervix. Estimated blood loss for the case was approximately 250 mL. There were no complications. Both mother and infant are resting comfortably in recovery.
[2019-03-16 20:31] VITALS: RESP 16
[2019-03-16] MEDS: SENNOSIDES-DOCUSATE SODIUM 1 EACH TAB PO SCH (22:37)
[2019-03-17] MEDS: SENNOSIDES-DOCUSATE SODIUM 1 EACH TAB PO SCH (08:16)
--- NOTE | 2019-03-17 10:04 | P.DS ---
Providers Date of admission: 03/16/19 06:38 Expected date of discharge: 03/17/19 Attending physician: Tay Munguia Primary care physician: Stated None - Discharge Diagnosis(es) (1) Term Current Visit: Yes Status: Acute (2) Normal spontaneous vaginal delivery Current Visit: Yes Status: Acute Hospital Course: The patient is a 33-year-old 4 para 3003 admitted at 40-0/7 weeks by good dating parameters perches admitted for elective induction with all signs reassuring. Her was uncomplicated and group B strep status was negative. On labor and delivery, she had Pitocin started followed by artificial rupture of membranes. She made slow progress through the latent phase but then progressed quickly through the active phase of labor to complete. She pushed quickly to a normal spontaneous vaginal delivery of a viable 7 lbs. 0 oz. baby girl with Apgars of 8 at 1 minute and 9 at 5 minutes. Her course was unremarkable with vital signs being stable and her temperature was afebrile throughout. She was deemed stable for discharge on day #1 and was discharged home to follow-up in the office in 6 weeks' time routinely. Discharge instructions included calling for any significantly increased bleeding or foul-smelling lochia, significantly increased fever or abdominal pain, perineal complaints, breast complaints, or anything also concerned her. She was additionally instructed to have nothing in the vagina for the 6 weeks time to include intercourse. She understood all of her instructions and agrees to follow up as noted above. Discharge medications included only continue vitamins as she has opted to breast-feed as well as [id number] analgesic pain medications. Maternal blood type is O+ and rubella status is immune. Procedures: #1. Pitocin induction #2. Artificial rupture of membranes #3. Normal spontaneous vaginal delivery Patient Condition at Discharge: Good Plan - Discharge Summary New Discharge Prescriptions: No Action Pnv No.95/Ferrous Fum/Folic AC [ Multivitamin Tablet] 1 each PO DAILY Discharge Medication List Pnv No.95/Ferrous Fum/Folic AC [ Multivitamin Tablet] 1 each PO DAILY 08/21/17 [History] Follow up Appointment(s)/Referral(s): Tay Munguia MD [STAFF PHYSICIAN] - 6 Weeks Discharge Disposition: HOME SELF-CARE
[2019-03-17 17:52] VITALS: BP 115/72; PULSE 66; TEMP 98
== END 2019-03-17 16:35 | disposition home or self-care (01) | DRG 807 ==
LOC: 4FBP 06:38
PROVIDERS: ADMIT Obstetrics & Gynecology; ATTEND Obstetrics & Gynecology
PROC: 10E0XZZ Delivery of Products of Conception, External Approach (ICD-10-PCS; principal; 2019-03-16)
DX: O69.81X0 Labor and delivery complicated by cord around neck, without compression, not applicable or unspecified (principal); Z37.0 Single live birth; Z3A.40 40 weeks gestation of pregnancy
CPT/HCPCS: 85025; 86850; 86900; 86901

== ENCOUNTER → 2019-08-24 | Outpatient (CLI) | payer BC ==
--- NOTE | 2019-08-24 17:33 | XR ---
EXAMINATION TYPE: XR foot complete RT DATE OF EXAM: 08/24/2019 COMPARISON: NONE HISTORY: Foot pain TECHNIQUE: 3 views FINDINGS: Metatarsals are intact. I see no fracture nor dislocation. Joint spaces are fairly normal. IMPRESSION: Negative right foot exam.
== END | disposition home or self-care (01) ==
LOC: RADXRMAIN 16:17
PROVIDERS: ATTEND Emergency Medicine
DX: M79.671 Pain in right foot (principal); S99.921A Unspecified injury of right foot, initial encounter

== ENCOUNTER → 2019-11-22 | Outpatient (CLI) | payer BC | END | disposition home or self-care (01) | LOC: LABWHC1 15:59 | PROVIDERS: ATTEND Obstetrics & Gynecology | DX: O20.0 Threatened abortion (principal); Z3A.00 Weeks of gestation of pregnancy not specified | CPT/HCPCS: 36415; 84702 ==

== ENCOUNTER 2020-04-24 10:11 | Emergency (ER) | payer BC ==
[2020-04-24 10:25] VITALS: TEMP 98.2
[2020-04-24] MEDS ORDERED: KETOROLAC 30 MG/ML 1 ML VIAL IVP STA (10:48)
[2020-04-24] MEDS ORDERED: ONDANSETRON 4 MG/2 ML VIAL IVP STA (10:48)
[2020-04-24] MEDS ORDERED: SODIUM CHLORIDE 0.9% 1,000 ML IV STA ×2 (10:48)
--- NOTE | 2020-04-24 10:51 | ED ---
Abdominal Pain HPI - General Chief Complaint: Abdominal Pain Stated Complaint: Abd Pain Time Seen by Provider: 04/24/20 10:37 Source: patient, RN notes reviewed, old records reviewed Mode of arrival: ambulatory Limitations: no limitations - History of Present Illness Initial Comments: 35-year-old female presents emergency department today for concern for sudden onset of right-sided abdominal pain within the right upper and lower quadrant starting at 7:30 this morning. Patient poor she was feeling well yesterday. Patient states that she's had no recent fevers or chills. She reports that the pain was so severe was causing her to vomit. Patient denies any changes in stools. She reports no personal history of kidney stones does report family hi story of kidney stones. - Related Data Home Medications Medication Instructions Recorded Confirmed Pnv No.95/Ferrous Fum/Folic AC 1 tab PO DAILY 08/21/17 04/24/20 [ Multivitamin Tablet] Previous Rx's Medication Instructions Recorded Ondansetron Odt [Zofran Odt] 4 mg PO Q8HR PRN #12 tab 04/24/20 Allergies Allergy/AdvReac Type Severity Reaction Status Date / Time No Known Allergies Allergy Verified 04/24/20 11:30 Review of Systems ROS Statement: Those systems with pertinent positive or pertinent negative responses have been documented in the HPI. ROS Other: All systems not noted in ROS Statement are negative. Past Medical History Past Medical History: No Reported History History of Any Multi-Drug Resistant Organisms: None Reported Past Surgical History: Orthopedic Surgery Past Anesthesia/Blood Transfusion Reactions: No Reported Reaction Past Psychological History: No Psychological Hx Reported Smoking Status: Never smoker Past Alcohol Use History: None Reported Past Drug Use History: None Reported - Past Family History Father Family Medical History: Blood Disorder, Cancer General Exam Limitations: no limitations General appearance: alert, in no apparent distress Head exam: Present: atraumatic, normocephalic, normal inspection Eye exam: Present: normal appearance ENT exam: Present: normal exam, mucous membranes moist Neck exam: Present: normal inspection. Absent: tenderness, meningismus, lymphadenopathy Respiratory exam: Present: normal lung sounds bilaterally. Absent: respiratory distress, wheezes, rales, rhonchi, stridor Cardiovascular Exam: Present: regular rate GI/Abdominal exam: Present: soft, tenderness (RLQ tenderness) Extremities exam: Present: normal inspection, full ROM, normal capillary refill. Absent: tenderness, pedal edema, joint swelling, calf tenderness Back exam: Present: normal inspection Neurological exam: Present: alert, oriented X3, CN II-XII intact Psychiatric exam: Present: normal affect, normal mood Skin exam: Present: warm Course Vital Signs 04/24/20 04/24/20 10:22 13:27 Temperature 98.2 F Pulse Rate 80 75 Respiratory 18 16 Rate Blood Pressure 112/70 97/57 O2 Sat by Pulse 99 95 Oximetry Medical Decision Making - Medical Decision Making 35-year-old female presented to return today with sudden onset of right-sided abdominal pain rating for right upper quadrant towards the right lower quadrant starting at 7:30 this morning. Patient reports no history of pain such as this before. Discussed concern for the quick onset of nature of the pain the likely be a kidney stone. She does report family history of kidney stone. Urinalysis was completed and did show trace hematuria. Liver and kidney function otherwise were unremarkable. Patient denies any vaginal bleeding or abnormal discharge. At this time Patient had a computed tomography scan without contrast which showed no evidence of retained ureteral stone. Discussed the Patient could've passed one at this time as the pain is diminishing upon arrival to the emergency department. I did discuss do further imaging with her ultrasound ovaries Patient declined states she relates is quite sure this is related to kidney stone passing. Discussed the Patient has any further pain or worsening signs or symptoms including fever chills or change in discomfort to return to the ER. Patient is agreeable treatment plan. - Lab Data Result diagrams: 04/24/20 11:10 04/24/20 11:10 Lab Results 04/24/20 04/24/20 04/24/20 Range/Units 10:42 10:42 11:10 WBC 13.0 H (3.8-10.6) k/uL RBC 5.23 (3.80-5.40) m/uL Hgb 14.9 (11.4-16.0) gm/dL Hct 46.9 H (34.0-46.0) % MCV 89.8 (80.0-100.0) fL MCH 28.5 (25.0-35.0) pg MCHC 31.8 (31.0-37.0) g/dL RDW 13.6 (11.5-15.5) % Plt Count 285 (150-450) k/uL Neutrophils % 82 % Lymphocytes % 11 % Monocytes % 5 % Eosinophils % 1 % Basophils % 1 % Neutrophils # 10.7 H (1.3-7.7) k/uL Lymphocytes # 1.4 (1.0-4.8) k/uL Monocytes # 0.6 (0-1.0) k/uL Eosinophils # 0.2 (0-0.7) k/uL Basophils # 0.1 (0-0.2) k/uL PT (9.0-12.0) sec INR (<1.2) APTT (22.0-30.0) sec Sodium (137-145) mmol/L Potassium (3.5-5.1) mmol/L Chloride (98-107) mmol/L Carbon Dioxide (22-30) mmol/L Anion Gap mmol/L BUN (7-17) mg/dL Creatinine (0.52-1.04) mg/dL Est GFR (CKD-EPI)AfAm (>60 ml/min/1.73 sqM) Est GFR (CKD-EPI)NonAf (>60 ml/min/1.73 sqM) Glucose (74-99) mg/dL Calcium (8.4-10.2) mg/dL Total Bilirubin (0.2-1.3) mg/dL AST (14-36) U/L ALT (4-34) U/L Alkaline Phosphatase (38-126) U/L Total Protein (6.3-8.2) g/dL Albumin (3.5-5.0) g/dL Amylase (30-110) U/L Lipase (23-300) U/L Urine Color Yellow Urine Appearance Clear (Clear) Urine pH 5.5 (5.0-8.0) Ur Specific [place] 1.027 (1.001-1.035) Urine Protein 1+ H (Negative) Urine Glucose (UA) Negative (Negative) Urine Ketones Negative (Negative) Urine Blood Small H (Negative) Urine Nitrite Negative (Negative) Urine Bilirubin Negative (Negative) Urine Urobilinogen 2.0 (<2.0) mg/dL Ur Leukocyte Esterase Negative (Negative) Urine RBC 4 (0-5) /hpf Urine WBC 2 (0-5) /hpf Ur Squamous Epith Cells 2 (0-4) /hpf Urine Mucus Many H (None) /hpf Urine HCG, Qual Not Detected (Not Detectd) 04/24/20 04/24/20 Range/Units 11:10 11:10 WBC (3.8-10.6) k/uL RBC (3.80-5.40) m/uL Hgb (11.4-16.0) gm/dL Hct (34.0-46.0) % MCV (80.0-100.0) fL MCH (25.0-35.0) pg MCHC (31.0-37.0) g/dL RDW (11.5-15.5) % Plt Count (150-450) k/uL Neutrophils % % Lymphocytes % % Monocytes % % Eosinophils % % Basophils % % Neutrophils # (1.3-7.7) k/uL Lymphocytes # (1.0-4.8) k/uL Monocytes # (0-1.0) k/uL Eosinophils # (0-0.7) k/uL Basophils # (0-0.2) k/uL PT 9.9 (9.0-12.0) sec INR 1.0 (<1.2) APTT 24.5 (22.0-30.0) sec Sodium 140 (137-145) mmol/L Potassium 4.7 (3.5-5.1) mmol/L Chloride 106 (98-107) mmol/L Carbon Dioxide 24 (22-30) mmol/L Anion Gap 10 mmol/L BUN 15 (7-17) mg/dL Creatinine 0.74 (0.52-1.04) mg/dL Est GFR (CKD-EPI)AfAm >90 (>60 ml/min/1.73 sqM) Est GFR (CKD-EPI)NonAf >90 (>60 ml/min/1.73 sqM) Glucose 92 (74-99) mg/dL Calcium 10.5 H (8.4-10.2) mg/dL Total Bilirubin 0.4 (0.2-1.3) mg/dL AST 28 (14-36) U/L ALT 28 (4-34) U/L Alkaline Phosphatase 81 (38-126) U/L Total Protein 8.2 (6.3-8.2) g/dL Albumin 5.2 H (3.5-5.0) g/dL Amylase 60 (30-110) U/L Lipase 89 (23-300) U/L Urine Color Urine Appearance (Clear) Urine pH (5.0-8.0) Ur Specific [place] (1.001-1.035) Urine Protein (Negative) Urine Glucose (UA) (Negative) Urine Ketones (Negative) Urine Blood (Negative) Urine Nitrite (Negative) Urine Bilirubin (Negative) Urine Urobilinogen (<2.0) mg/dL Ur Leukocyte Esterase (Negative) Urine RBC (0-5) /hpf Urine WBC (0-5) /hpf Ur Squamous Epith Cells (0-4) /hpf Urine Mucus (None) /hpf Urine HCG, Qual (Not Detectd) 04/24/20 11:08 EKG shows possible ectopic atrial arrhythmia. Lateral infarct. Ventricular rate of 70 bpm. Intervals 142 ms. QRS duration is 82 ms. QT QTc is 404/436 ms. - Radiology Data Radiology results: report reviewed CT shows correlate for possible enteritis. Disposition Clinical Impression: Right sided abdominal pain Disposition: HOME SELF-CARE Condition: Good Instructions (If sedation given, give patient instructions): Abdominal Pain (ED) Additional Instructions: Patient is to drink plenty of water. Take Tylenol for pain or Motrin. Return to emergency department if any alarming signs or symptoms occur. Prescriptions: Ondansetron Odt [Zofran Odt] 4 mg PO Q8HR PRN #12 tab PRN Reason: Nausea Is patient prescribed a controlled substance at d/c from ED?: No Referrals: Darrian Wisdom DO [Primary Care Provider] - 1-2 days Time of Disposition: 13:25
--- NOTE | 2020-04-24 11:26 | XR ---
EXAMINATION TYPE: XR KUB DATE OF EXAM: 04/24/2020 COMPARISON: NONE HISTORY: Pain TECHNIQUE: Single supine KUB image of the abdomen is obtained FINDINGS: Small bowel demonstrates no evidence for dilatation or air fluid levels. Gas and fecal material is seen in non-distended colon. No convincing evidence for pneumoperitoneum. No unusual calcifications. The lung bases are clear. The osseous structures are intact. IMPRESSION: 1. Overall nonobstructive bowel gas pattern.
[2020-04-24 11:35] LABS: Basophils # (A) 0.1 k/uL (0-0.2); Basophils % (A) 1 %; Eosinophils # (A) 0.2 k/uL (0-0.7); Eosinophils % (A) 1 %; HCT 46.9 % (34.0-46.0); HGB 14.9 gm/dL (11.4-16.0); Lymphocytes # (A) 1.4 k/uL (1.0-4.8); Lymphocytes % (A) 11 %; MCH 28.5 pg (25.0-35.0); MCHC 31.8 g/dL (31.0-37.0); MCV 89.8 fL (80.0-100.0); Mean Platelet Volume 7.2; Monocytes # (A) 0.6 k/uL (0-1.0); Monocytes % (A) 5 %; Neutrophils # (A) 10.7 k/uL (1.3-7.7); Neutrophils % (A) 82 %; Platelet Count 285 k/uL (150-450); RBC 5.23 m/uL (3.80-5.40); RDW 13.6 % (11.5-15.5)
[2020-04-24 11:43] LABS: ALT 28 U/L (4-34); AST 28 U/L (14-36); African American GFR (CKD) >90 (>60 ml/min/1.73 sqM); Albumin 5.2 g/dL (3.5-5.0); Alkaline Phosphatase 81 U/L (38-126); Amylase 60 U/L (30-110); Anion Gap 10 mmol/L; Blood Urea Nitrogen 15 mg/dL (7-17); Calcium 10.5 mg/dL (8.4-10.2); Carbon Dioxide 24 mmol/L (22-30); Chloride 106 mmol/L (98-107); Glucose 92 mg/dL (74-99); Non-African American GFR(CKD) >90 (>60 ml/min/1.73 sqM); Potassium 4.7 mmol/L (3.5-5.1); Sodium 140 mmol/L (137-145); Total Bilirubin 0.4 mg/dL (0.2-1.3); Total Protein 8.2 g/dL (6.3-8.2)
[2020-04-24 11:57] LABS: Appearance,Urine Clear (Clear); Bilirubin,Urine Negative (Negative); Blood,Urine Small (Negative); Color,Urine Yellow; Glucose,Urine (UA) Negative (Negative); Ketones,Urine Negative (Negative); Leukocyte Esterase,Urine Negative (Negative); Mucus,Urine Many /hpf; Nitrite,Urine Negative (Negative); PH, Urine 5.5 (5.0-8.0); Protein,Urine 1+ (Negative); RBC,Urine 4 /hpf (0-5); Specific Gravity,Urine 1.027 (1.001-1.035); Squamous Epithelial Cell,Urine 2 /hpf (0-4); WBC,Urine 2 /hpf (0-5)
[2020-04-24 12:14] LABS: Partial Thromboplastin Time 24.5 sec (22.0-30.0); Prothrombin Time 9.9 sec (9.0-12.0)
--- NOTE | 2020-04-24 13:00 | CT ---
EXAMINATION TYPE: CT abdomen pelvis wok con DATE OF EXAM: 04/24/2020 COMPARISON: HISTORY: Right flank pain. Hematuria. CT DLP: 417.2 mGycm Automated exposure control for dose reduction was used. TECHNIQUE: Helical acquisition of images from the lung bases through the pelvis. FINDINGS: LUNG BASES: No significant abnormality is appreciated. AORTA: No significant abnormality is appreciated. LIVER/GB: No significant abnormality is appreciated. PANCREAS: No significant abnormality is seen. SPLEEN: No significant abnormality is seen. ADRENALS: No significant abnormality is seen. KIDNEYS: There are changes of medullary sponge kidney. No hydronephrosis, no ureteral calculus.. REPRODUCTIVE ORGANS: No significant abnormality is seen. URINARY BLADDER: No significant abnormality is seen. BOWEL: Fluid-filled loops of small bowel, ascending colon shows fluid-filled appearance, appendix is not seen.. FREE AIR: No Free Air is visible. ASCITES: Small amount of ascites in the pelvis. PELVIC ADENOPATHY: None visualized. RETROPERITONEAL ADENOPATHY: No Retroperitoneal Adenopathy visible. OSSEOUS STRUCTURES: No significant abnormality is seen. IMPRESSION: CORRELATE FOR POSSIBLE ENTERITIS. Additional findings above.
[2020-04-24 13:28] VITALS: BP 97/57; PULSE 75; RESP 16
== END 2020-04-24 13:34 | disposition home or self-care (01) ==
LOC: EC 10:11
DX: R10.11 Right upper quadrant pain (principal); R10.31 Right lower quadrant pain
CPT/HCPCS: 36415; 93005; 80053; 82150; 83690; 85025; 85610; 85730; 81001; 81025; 74018; 74176; 99285; 96374; 96375; 96361; J2405; J1885

== ENCOUNTER → 2020-05-22 | Outpatient (CLI) | payer BC ==
[2020-05-22 19:33] LABS: Thyroid Peroxidase Antibodies <28.0 U/mL (0.0-60.0)
[2020-05-22 20:03] LABS: African American GFR (CKD) 112.3 (60.0-200.0); Albumin 4.6 g/dL (3.80-4.90); Anion Gap 6.3 mmol/L (4.00-12.00); BUN/Creat Ratio 12.5 Ratio (12.00-20.00); Calcium 9.6 mg/dL (8.7-10.3); Carbon Dioxide 27.7 mmol/L (21.6-31.8); Globulin 2.3 g/dL (1.6-3.3); Non-African American GFR(CKD) 96.9 (60.0-200.0); Total Bilirubin 0.4 mg/dL (0.3-1.2); Total Protein 6.9 g/dL (6.2-8.2)
[2020-05-22 20:11] LABS: Estradiol 24.4 pg/mL; Prolactin 9.2 ng/mL (2.8-29.2)
[2020-05-22 20:12] LABS: Luteinizing Hormone 12.7 mIU/mL
== END | disposition home or self-care (01) ==
LOC: LABWHC1 13:27
PROVIDERS: ATTEND Internal Medicine Endocrinology, Diabetes & Metabolism
DX: R23.2 Flushing (principal); Z87.59 Personal history of other complications of pregnancy, childbirth and the puerperium
CPT/HCPCS: 36415; 80053; 82024; 82533; 82670; 83001; 83002; 84146; 84439; 84443; 84480; 86376

== ENCOUNTER → 2021-02-12 | Outpatient (CLI) | payer BC | END | disposition home or self-care (01) | LOC: LABWHC1 12:40 | PROVIDERS: ATTEND Obstetrics & Gynecology Reproductive Endocrinology | DX: N97.9 Female infertility, unspecified (principal) | CPT/HCPCS: 36415; 84702 ==

== ENCOUNTER → 2021-02-14 | Outpatient (CLI) | payer BC ==
[2021-02-14 14:07] LABS: HCG,Quantitative Serum 75.5 mIU/mL
[2021-02-14 23:08] LABS: Estradiol 128.5 pg/mL
== END | disposition home or self-care (01) ==
LOC: LABWHC1 12:56
PROVIDERS: ATTEND Obstetrics & Gynecology Reproductive Endocrinology
DX: Z31.69 Encounter for other general counseling and advice on procreation (principal)
CPT/HCPCS: 36415; 82670; 84144; 84443; 84702

== ENCOUNTER → 2021-02-21 | Outpatient (CLI) | payer BC ==
[2021-02-21 15:27] LABS: Estradiol 226.3 pg/mL
[2021-02-21 15:50] LABS: HCG,Quantitative Serum 1712.9 mIU/mL
== END | disposition home or self-care (01) ==
LOC: LABWHC1 09:32
PROVIDERS: ATTEND Obstetrics & Gynecology Reproductive Endocrinology
DX: Z31.69 Encounter for other general counseling and advice on procreation (principal)
CPT/HCPCS: 36415; 82670; 84144; 84702

== ENCOUNTER → 2021-02-28 | Outpatient (CLI) | payer BC ==
[2021-02-28 10:59] LABS: HCG,Quantitative Serum 14241.5 mIU/mL
== END | disposition home or self-care (01) ==
LOC: LABWHC1 09:56
PROVIDERS: ATTEND Obstetrics & Gynecology Reproductive Endocrinology
DX: Z31.69 Encounter for other general counseling and advice on procreation (principal)
CPT/HCPCS: 36415; 82670; 84144; 84702

== ENCOUNTER → 2021-04-11 | Outpatient (CLI) | payer BC | END | disposition home or self-care (01) | LOC: LABWHC1 07:28 | PROVIDERS: ATTEND Obstetrics & Gynecology Reproductive Endocrinology | DX: O02.1 Missed abortion (principal); Z3A.00 Weeks of gestation of pregnancy not specified | CPT/HCPCS: 36415; 84702 ==

== ENCOUNTER → 2021-05-23 | Outpatient (CLI) | payer BC | END | disposition home or self-care (01) | LOC: LABWHC1 07:29 | PROVIDERS: ATTEND Obstetrics & Gynecology Reproductive Endocrinology | DX: N96 Recurrent pregnancy loss (principal) | CPT/HCPCS: 36415; 84702 ==

== ENCOUNTER → 2021-05-30 | Outpatient (CLI) | payer BC ==
[2021-05-30 16:32] LABS: Thyroid Peroxidase Antibodies 32.6 U/mL (0.0-60.0)
== END | disposition home or self-care (01) ==
LOC: LABWHC1 08:18
PROVIDERS: ATTEND Obstetrics & Gynecology Reproductive Endocrinology
DX: Z31.69 Encounter for other general counseling and advice on procreation (principal)
CPT/HCPCS: 36415; 86038; 86376

== ENCOUNTER → 2021-08-07 | Outpatient (CLI) | payer BC | END | disposition home or self-care (01) | LOC: LABWHC1 07:18 | PROVIDERS: ATTEND Obstetrics & Gynecology Reproductive Endocrinology | DX: O09.811 Supervision of pregnancy resulting from assisted reproductive technology, first trimester (principal); Z3A.00 Weeks of gestation of pregnancy not specified | CPT/HCPCS: 36415; 82670; 84144; 84443; 84702 ==

== ENCOUNTER → 2021-08-09 | Outpatient (CLI) | payer BC | END | disposition home or self-care (01) | LOC: LABWHC1 08:14 | PROVIDERS: ATTEND Obstetrics & Gynecology Reproductive Endocrinology | DX: Z31.69 Encounter for other general counseling and advice on procreation (principal); N96 Recurrent pregnancy loss | CPT/HCPCS: 36415; 82670; 84144; 84702 ==

== ENCOUNTER → 2021-08-11 | Outpatient (CLI) | payer BC ==
[2021-08-11 12:59] LABS: HCG,Quantitative Serum 1614.2 mIU/mL
== END | disposition home or self-care (01) ==
LOC: LABWHC1 11:08
PROVIDERS: ATTEND Obstetrics & Gynecology Reproductive Endocrinology
DX: O09.811 Supervision of pregnancy resulting from assisted reproductive technology, first trimester (principal); Z3A.00 Weeks of gestation of pregnancy not specified
CPT/HCPCS: 36415; 82670; 84144; 84702

== ENCOUNTER → 2021-08-14 | Outpatient (CLI) | payer BC | END | disposition home or self-care (01) | LOC: LABWHC1 07:33 | PROVIDERS: ATTEND Obstetrics & Gynecology Reproductive Endocrinology | DX: Z01.812 Encounter for preprocedural laboratory examination (principal) | CPT/HCPCS: 36415; 82670; 84144; 84702 ==

== ENCOUNTER 2022-02-08 15:52 | Emergency (ER) | payer BC ==
--- NOTE | 2022-02-08 16:17 | ED ---
General Adult HPI - General Chief complaint: Shortness of Breath Stated complaint: ARCELIA(31 weeks preg.) Time Seen by Provider: 02/08/22 16:15 Source: patient Mode of arrival: ambulatory Limitations: no limitations - History of Present Illness Initial comments: Patient presents to the ED with her for evaluation. Patient is 31 weeks with twins. Patient states that she has had symptoms of "allergies" for the past 3 weeks or so. Patient states that she has had watery eyes, a runny nose, nasal congestion, wheezing and dyspnea over that time frame. Patient states that she has tried multiple different allergy medications without any improvement. Patient also states that she is currently being treated for a "sinus infection" with a course of amoxicillin. Patient admits to having a mild cough at times as well. Patient denies having any chest pain to me. Patient denies fever or chills, headache, focal numbness/weakness/neuro deficit, sore throat, otalgia, chest pain, neck/arm/jaw/back pain, hemoptysis, palpitations, dizziness, abdominal pain, nausea/vomiting/diarrhea, vaginal discharge or bleeding, dysuria or urinary symptoms, decreased urine output, leg or calf swelling or pain, or any other symptoms or complaints. Patient states that she is not vaccinated against Covid. Patient states that she has been using her sister's albuterol inhaler with some relief. - Related Data Home Medications Medication Instructions Recorded Confirmed Pnv No.95/Ferrous Fum/Folic AC 1 tab PO DAILY 08/21/17 11/11/21 [ Multivitamin Tablet] Aspirin [Adult Low Dose Aspirin EC] 81 mg PO DAILY 11/11/21 11/11/21 Metoclopramide HCl [Reglan] 10 mg PO DIRECTED 11/11/21 11/11/21 Previous Rx's Medication Instructions Recorded Albuterol Inhaler [Ventolin Hfa 2 puff INHALATION TID PRN #8 gm 02/08/22 Inhaler] Allergies Allergy/AdvReac Type Severity Reaction Status Date / Time No Known Allergies Allergy Verified 02/08/22 16:07 Review of Systems ROS Statement: Those systems with pertinent positive or pertinent negative responses have been documented in the HPI. ROS Other: All systems not noted in ROS Statement are negative. Past Medical History Past Medical History: No Reported History History of Any Multi-Drug Resistant Organisms: None Reported Past Surgical History: Orthopedic Surgery Past Anesthesia/Blood Transfusion Reactions: No Reported Reaction Past Psychological History: No Psychological Hx Reported Smoking Status: Never smoker Past Alcohol Use History: None Reported Past Drug Use History: None Reported - Past Family History Father Family Medical History: Blood Disorder, Cancer General Exam Limitations: no limitations General appearance: alert, in no apparent distress Head exam: Present: atraumatic, normocephalic Eye exam: Present: normal appearance, EOMI ENT exam: Present: normal oropharynx, mucous membranes moist Neck exam: Present: other (Trachea is midline) Respiratory exam: Present: other (Scattered bilateral expiratory wheezes). Absent: respiratory distress, rales, rhonchi, stridor Cardiovascular Exam: Present: regular rate, normal rhythm, normal heart sounds, other (Normal radial pulses bilaterally) GI/Abdominal exam: Present: soft, other (Gravid abdomen). Absent: tenderness, guarding Extremities exam: Present: other (Negative Homans sign bilaterally). Absent: tenderness, pedal edema, calf tenderness Neurological exam: Present: alert, oriented X3. Absent: motor sensory deficit Psychiatric exam: Present: normal affect, normal mood Skin exam: Present: warm, dry, intact, normal color Course Vital Signs 02/08/22 02/08/22 02/08/22 16:07 16:09 17:31 Temperature 97.9 F Pulse Rate 99 90 Respiratory 20 20 Rate Blood Pressure 122/82 O2 Sat by Pulse 96 Oximetry 02/08/22 17:38 Temperature Pulse Rate 95 Respiratory Rate Blood Pressure O2 Sat by Pulse Oximetry - Reevaluation(s) Reevaluation #1: 02/08/22 19:22 Patient's wheezing has improved and examination, and she states that her dyspnea/symptoms have improved with the DuoNeb treatment that she was given in the ED. Patient denies development of any new symptoms while in the ED. Patient remains alert and breathing comfortably with a normal room air oxygen saturation. Patient and are aware of the patient's test results, and patient feels comfortable being discharged home with her at this time. Will discharge patient home with a prescription for an albuterol inhaler. Patient was counseled about bronchospasm, and she was clearly explained return and follow-up instructions. She was instructed to follow up closely with her [employer] doctor. Patient was also instructed to have a low threshold for return to the emergency department should her symptoms worsen. EKG Findings - EKG Comments: EKG Findings:: Normal sinus rhythm, ventricular rate of 93 bpm, no ectopy, normal TX and QRS intervals, normal QT interval, normal axis, no ST or T-wave abnormality Medical Decision Making - Medical Decision Making I suspect that the patient's symptoms are likely secondary to bronchospasm. Patient's wheezing/dyspnea have improved with the DuoNeb treatment in the ED. Patient's viral studies are negative. Patient's chest x-ray is unremarkable. Patient is breathing comfortably with a normal room air oxygen saturation in the ED. I do not suspect an emergent medical condition at this time. Will discharge patient home with her at this time. Patient feels comfortable with this plan. - Lab Data Lab Results 02/08/22 02/08/22 Range/Units 16:17 16:17 Coronavirus (PCR) Not Detected (Not Detectd) Influenza Type A RNA Not Detected (Not Detectd) Influenza Type B (PCR) Not Detected (Not Detectd) - Radiology Data Chest x-ray: No acute process. Disposition Clinical Impression: Bronchospasm, Wheezing Disposition: HOME SELF-CARE Condition: Stable Instructions (If sedation given, give patient instructions): Bronchospasm (ED) Additional Instructions: Return to the ER immediately should you develop increased shortness of breath, a fever, chest pain, persistent vomiting, feeling dizzy or faint, or new or worsening symptoms. Follow up closely with your [employer] [facility]. Prescriptions: Albuterol Inhaler [Ventolin Hfa Inhaler] 2 puff INHALATION TID PRN #8 gm PRN Reason: Wheezing Is patient prescribed a controlled substance at d/c from ED?: No Referrals: Darrian Wisdom DO [Primary Care Provider] - 1-2 days Tay Munguia MD [STAFF PHYSICIAN] - 1-2 days Time of Disposition: 19:48
[2022-02-08] MEDS ORDERED: IPRATROPIUM-ALBUTEROL 3 ML NEB INHALATION STA (16:34)
--- NOTE | 2022-02-08 16:59 | XR ---
EXAMINATION TYPE: XR chest 1V portable DATE OF EXAM: 02/08/2022 COMPARISON: NONE HISTORY: Dyspnea TECHNIQUE: Single frontal view of the chest is obtained. FINDINGS: There is no focal air space opacity, pleural effusion, or pneumothorax seen. The cardiac silhouette size is within normal limits. The osseous structures are intact. IMPRESSION: No acute process.
[2022-02-08 20:16] VITALS: BP 104/58; PULSE 90; RESP 16; TEMP 98.1
== END 2022-02-08 20:14 | disposition home or self-care (01) ==
LOC: EC 15:52
DX: J98.01 Acute bronchospasm (principal); R06.2 Wheezing; Z20.822 Contact with and (suspected) exposure to COVID-19
CPT/HCPCS: 71045; 87502; 87635; 93005; 94640; 99285

== ENCOUNTER 2022-02-12 15:29 | Outpatient (CLI) | payer BC ==
[2022-02-12 16:55] VITALS: BP 115/59; PULSE 128; RESP 20; TEMP 97.7
--- NOTE | 2022-02-14 11:59 | P.MSEPDOC ---
Presenting Problems - Arrival Data Date of Arrival on Unit: 02/12/22 Time of Arrival on Unit: 15:29 Mode of Transport: Ambulatory - Complaint OB-Reason for Admission/Chief Complaint: Decreased Movement Comment: pt presents to triage for decreased movement since 399 this am Medical History - Information : 6 Para: 4 Term: 4 : 0 Abortions: Spontaneous or Elective: 1 Number of Living Children: 4 - Gestational Age Gestational Age by GARETH (wks/days): 31 Weeks and 2 Days - History Complications: Multiple Review of Systems - Review of Systems Constitutional: No problems Breast: No problems ENT: No problems Cardiovascular: No problems Respiratory: No problems Gastrointestinal: No problems Genitourinary: No problems Musculoskeletal: No problems Neurological: No problems Skin: No problems Vital Signs - Temperature Temperature: 97.7 F Temperature Source: Temporal Artery Scan - Pulse Right Brachial Pulse Rate: 128 Pulse Assessment Method: Pulse Oximetry - Respirations Respiratory Rate: 20 Oxygen Delivery Method: Room Air O2 Sat by Pulse Oximetry: 97 - Blood Pressure Right Arm Blood Pressure: 115/59 Blood Pressure Mean: 77 Blood Pressure Source: Automatic Cuff Medical Screen Scoring - Assessment - Baby A Baseline FHR: 155 Heart Rate - NICHD Category: Category I (Normal) - Assessment - Baby B Baseline FHR: 155 Heart Rate - NICHD Category: Category I (Normal) NST: Reactive Physician Notification - Physician Notified Physician Notified Date: 02/12/22 Physician Notified Time: 16:20 New Order Received: Yes - Notification Comment Comment: discharge pt home, follow up wed next week at scheduled appt, increase oral fluids as much as possible Maternal Triage Index - Maternal Triage Index Presenting for scheduled procedure w/no complaint: No - Stat/Priority 1 Stat Priority 1: No - Urgent/Priority 2 Urgent Priority 2: No - Prompt/Priority 3 Prompt Priority 3: Yes Criteria Met for Priority 3: GA 31 2, presents to triage for decreased movement Disposition - Disposition OB Disposition: Triage, Discharge to home, Written follow up instructions reviewed Discharge Date: 02/12/22 Discharge Time: 16:30 I agree with the RN Medical Screening Exam: Yes Physician's MSE Comment: I have neither seen nor examined the patient. Case reviewed; plan agreed upon as documented in EMR&OBIX.: Yes Diagnosis: RELATED CONDITIONS, UNSPECIFIED, THIRD TRIMESTER
== END 2022-02-12 16:30 | disposition home or self-care (01) ==
LOC: FBPOP 15:29
PROVIDERS: ATTEND Obstetrics & Gynecology
DX: O47.03 False labor before 37 completed weeks of gestation, third trimester (principal); Z3A.31 31 weeks gestation of pregnancy
CPT/HCPCS: 59025; 99213

== ENCOUNTER 2022-02-16 10:47 | Outpatient (CLI) | payer BC ==
[2022-02-16] MEDS: LACTATED RINGERS 1,000 ML IV SCH ×3 (11:20→15:04)
[2022-02-16] MEDS ORDERED: BETAMET ACET-BETAMETH SOD PHOS 6 MG/ML MDV IM SCH (12:45)
[2022-02-16] MEDS: TERBUTALINE 1 MG/ML VIAL SQ PRN ×3 (12:49→13:23)
[2022-02-16 13:33] LABS: Appearance,Urine Clear (Clear); Bilirubin,Urine Negative (Negative); Blood,Urine Negative (Negative); Color,Urine Light Yellow; Glucose,Urine (UA) Negative (Negative); Ketones,Urine Negative (Negative); Leukocyte Esterase,Urine Negative (Negative); Nitrite,Urine Negative (Negative); PH, Urine 6.5 (5.0-8.0); Protein,Urine Negative (Negative); Specific Gravity,Urine 1.004 (1.001-1.035); Urobilinogen,Urine <2.0 mg/dL (<2.0)
[2022-02-16] MEDS ORDERED: MAGNESIUM SULFATE GM 6 GM in SODIUM CHLORIDE 0.9% 100 ML IVPB ONE (13:42)
[2022-02-16] MEDS ORDERED: MAGNESIUM SULFATE-WATER PMX 20 GM in WATER FOR INJECTION 1 500ML.BAG IV SCH (14:00)
[2022-02-16 15:02] VITALS: RESP 16
[2022-02-16 15:39] LABS: Basophils # (A) 0.1 k/uL (0-0.2); Basophils % (A) 1 %; Eosinophils # (A) 0.6 k/uL (0-0.7); Eosinophils % (A) 5 %; HCT 31.7 % (34.0-46.0); HGB 10.4 gm/dL (11.4-16.0); Hypochromasia Slight; Lymphocytes # (A) 1.3 k/uL (1.0-4.8); Lymphocytes % (A) 10 %; MCH 29.8 pg (25.0-35.0); MCHC 32.6 g/dL (31.0-37.0); MCV 91.4 fL (80.0-100.0); Mean Platelet Volume 7.8; Monocytes # (A) 0.4 k/uL (0-1.0); Monocytes % (A) 3 %; Neutrophils % (A) 81 %; Platelet Count 256 k/uL (150-450); RBC 3.47 m/uL (3.80-5.40); RDW 13.4 % (11.5-15.5); WBC 13.7 k/uL (3.8-10.6)
--- NOTE | 2022-02-16 17:21 | P.HPOB ---
History of Present Illness H&P Date: 02/16/22 Chief Complaint: 31-6/7 weeks twin intrauterine , labor The patient is a 36-year-old 9 para 4044 presents labor and delivery this afternoon at 31-4/7 weeks as established by last menstrual period and confirmed by 8 week ultrasound. She has a known twin intrauterine which is dichorionic and diamniotic. She presents today complaining of c ontractions beginning last night with some bloody show this morning. On labor and delivery, she is found to be kath every 2-4 minutes and appears quite uncomfortable. Digital cervical examination performed by the nurses demonstrates her see one centimeters dilated, thick with presenting part very high in unclear as to whether present part is. She was initially treated with IV hydration and 3 doses of subcutaneous terbutaline which failed to alleviate the contractions. She in fact was beginning to become more uncomfortable and therefore had magnesium sulfate started at which time the contractions significantly settled down. Both heart tracings are category 1 in nature. Her has been otherwise essentially uncomplicated though she did have Covid at the end of September. She also falls into the category of advanced maternal age and had a normal screening tests for trisomies. Obstetrical history: 9 para 4044 with 4 previous miscarriages not req uiring D&C. She has had 4 normal spontaneous vaginal deliveries without complications. Current statistics are listed in history present illness. EDC of 04/16/2022 was established by last menstrual period and confirmed by 18 week ultrasound. Laboratory workup demonstrates a blood type of O+ with a negative antibody screen. Rubella status is immune. The remainder of the laboratory workup was within normal limits. One hour Glucola is normal and group B strep status has not yet been determined. Gynecologic history: Unremarkable with no history of any infections to include STDs. Review of Systems Review of systems is confined to history of present illness. Past Medical History Past Medical History: No Reported History History of Any Multi-Drug Resistant Organisms: None Reported Past Surgical History: Orthopedic Surgery Past Anesthesia/Blood Transfusion Reactions: No Reported Reaction Smoking Status: Never smoker - Past Family History Father Family Medical History: Blood Disorder, Cancer Medications and Allergies Home Medications Medication Instructions Recorded Confirmed Type Pnv No.95/Ferrous Fum/Folic AC 1 tab PO DAILY 08/21/17 02/16/22 History [ Multivitamin Tablet] Aspirin [Adult Low Dose Aspirin EC] 81 mg PO DAILY 11/11/21 02/16/22 History Albuterol Inhaler [Ventolin Hfa 2 puff INHALATION TID PRN #8 gm 02/08/22 02/16/22 Rx Inhaler] Allergies Allergy/AdvReac Type Severity Reaction Status Date / Time No Known Allergies Allergy Verified 02/16/22 11:08 Exam Vital Signs Pulse Resp BP 02/16/22 16:43 117 H 16 126/61 02/16/22 16:12 116 H 16 115/63 02/16/22 15:30 112 H 16 110/56 02/16/22 15:02 113 H 16 133/58 02/16/22 14:53 113 H 18 115/63 02/16/22 14:27 120 H 18 106/54 02/16/22 14:17 117 H 18 100/50 02/16/22 14:02 118 H 18 106/58 Intake and Output 02/16/22 02/16/22 02/16/22 06:59 14:59 22:59 Other: Weight 72.121 kg In general, this is a well-developed, well-nourished white female in no current acute distress. Her heart has a regular rhythm and rate without murmur. Her lungs clear to auscultation bilaterally in all buchanan. Her abdomen is gravid, nondistended, has normal active bowel sounds, soft, nontender, without any palpable masses aside from uterine fundus. Her extremities are without any cyanosis, clubbing, or edema and are nontender to palpation bilaterally. Dig ital cervical examination remains unchanged at 1 cm dilation, thick, with presentation high in the pelvis. In the office most recently the presentation was breech/vertex. Results Result Diagrams: 02/16/22 14:40 Abnormal Lab Results - Last 24 Hours (Table) 02/16/22 Range/Units 14:40 WBC 13.7 H (3.8-10.6) k/uL RBC 3.47 L (3.80-5.40) m/uL Hgb 10.4 L (11.4-16.0) gm/dL Hct 31.7 L (34.0-46.0) % Neutrophils # 11.0 H (1.3-7.7) k/uL Assessment and Plan (1) 31 to 32 weeks gestation of Current Visit: Yes Status: Acute Code(s): WSY1883 - SNOMED Code(s): 875320502 (2) Twin Current Visit: Yes Status: Acute Code(s): O30.009 - TWIN , UNSP NUM PLCNTA & AMNIO SACS, UNSP TRIMESTER SNOMED Code(s): 93048991 (3) labor Current Visit: Yes Status: Acute Code(s): O60.00 - LABOR WITHOUT DELIVERY, UNSPECIFIED TRIMESTER SNOMED Code(s): 6096286 Plan: The patient has been stabilized in triage with magnesium sulfate, 6 g bolus followed by 2 g per hour. First dose of betamethasone has been given as well. heart tones reassuring. Nevertheless, she continues to have occasional contractions. As a result, we will transfer the patient to a tertiary care institution secondary to the potential need for a level III nursery. Dr. Zuniga at [facility] [place] has accepted the transfer.
[2022-02-16 17:42] VITALS: BP 134/69; PULSE 112; TEMP 97.2
== END 2022-02-16 17:43 ==
LOC: FBPOP 10:47
PROVIDERS: ATTEND Obstetrics & Gynecology
DX: O60.03 Preterm labor without delivery, third trimester (principal); O30.003 Twin pregnancy, unspecified number of placenta and unspecified number of amniotic sacs, third trimester; Z3A.32 32 weeks gestation of pregnancy
CPT/HCPCS: 59025; 96365; 96361; 96366; 96372; 86900; 86901; 82731; 85025; 86850; 81003; J3105; J3475 ×2; J0702

== ENCOUNTER 2022-03-02 16:31 | Outpatient (CLI) | payer BC ==
[2022-03-02] MEDS ORDERED: LACTATED RINGERS 1,000 ML IV SCH (17:15)
[2022-03-02] MEDS: TERBUTALINE 1 MG/ML VIAL SQ PRN ×3 (17:19→17:49)
[2022-03-02 20:04] VITALS: BP 118/72; PULSE 99; RESP 18; TEMP 98
--- NOTE | 2022-04-07 09:11 | P.MSEPDOC ---
Presenting Problems - Arrival Data Date of Arrival on Unit: 03/02/22 Time of Arrival on Unit: 16:31 Mode of Transport: Ambulatory - Complaint OB-Reason for Admission/Chief Complaint: Possible Onset of Labor Comment: Cxns started 1315 Q5mins lasting 1min Medical History - Information : 7 Para: 4 Term: 4 : 0 Abortions: Spontaneous or Elective: 2 Number of Living Children: 4 - Gestational Age Gestational Age by GARETH (wks/days): 33 Weeks and 4 Days - History Complications: Multiple , Breech Comment: twin , baby B is breech Review of Systems - Review of Systems Constitutional: No problems Breast: No problems ENT: No problems Cardiovascular: No problems Respiratory: No problems Gastrointestinal: No problems Genitourinary: No problems Musculoskeletal: No problems Neurological: No problems Skin: No problems Vital Signs - Temperature Temperature: 98.0 F Temperature Source: Oral - Pulse Right Pulse Rate: 99 - Respirations Respiratory Rate: 18 Oxygen Delivery Method: Room Air O2 Sat by Pulse Oximetry: 100 - Blood Pressure Right Arm Blood Pressure: 118/72 Blood Pressure Mean: 87 Blood Pressure Source: Automatic Cuff Medical Screen Scoring - Cervical Exam Dilation (cm): 1 Effacement (%): 0 Membranes: Intact - Uterine Contractions Frequency From (mins): 1 Frequency To (mins): 7 Duration From (seconds): 60 Duration To (seconds): 80 Intensity: Mild Resting: Soft to palpation - Assessment - Baby A Baseline FHR: 150 Heart Rate - NICHD Category: Category I (Normal) NST: Reactive - Assessment - Baby B Baseline FHR: 155 Heart Rate - NICHD Category: Category I (Normal) NST: Reactive Physician Notification - Physician Notified Physician Notified Date: 03/02/22 Physician Notified Time: 17:06 Physician: Zandra Muhammad Order Received: Yes - Notification Comment Comment: 03/02/22 @ 7873: Pt here with c/o cxns every 5min lasting for. 1min since 1330 today. Pt was here at 31wks with. pre-term labor and was transfered to [facility] for. magnesium treatment. Pt was sent home after labor. stopped and was stable to or. 03/02/22 @ 6275: RN called and reported to Dr. Muhammad on. maternal/ status, UC pattern, FHTs, NST,. cervical exam, prior visit for pre-term labor and POC at that time. RN to order and administer 1L bolus of. LR, and Terb. 0.25mg every 15mins up to 4 doses. RN. to call Dr. Muhammad with update post treatment. 03/02/22 @ 1830: RN called and reported to Dr. Muhammad on. maternal/ status, UC pattern, FHTs, pt is no. longer feeling or tracing cxns. Pt received a total. of 3 doses terb., 1L bolus of LR. Pain is minimal at. this time. Pt has a follow up apt with Dr. Munguia. on . Per Dr. Muhammad, RN is to order and administer. 60mg Procardia XL now, and she will call in an RN for. pt to take daily. Pt to follow up with Dr. Munguia. on Weds. Pelvic rest and lots of fluids. Dr. Muhammad also ordered for RN to re-check. patient's cervix to ensure she has not made any. cervical change prior to discharge. Pt is to remain. in triage until an hour after administration of. Procardia to ensure she is tolerating the medication. well. 03/02/22 @ 1836: RN updated pt on POC and the order for. Procardia that Dr. Muhammad would like her to take. Pt. is refusing to take the Procardia at this time; she. would like to talk with Dr. Munguia first before. she starts a new medication. Pt states she nervous. about taking any medications while , and she. would feel more comfortable speaking with her. designated OBGYN before taking a new medication. Medication information given to patient as well. 03/02/22 @ 1838: RN called Dr. Muhammad and informed her that. the pt is refusing the Procardia at this time. Dr. Muhammad is advising that the pt take the Procardia, but. acknowledges that the patient has a right to refuse. Dr. Muhammad would like the pt to call the office at 8am. when they open tomorrow and get in to see Dr. Munguia tomorrow, instead of Weds. Dr. Muhammad would. also like RN to ensure pt understands the importance. of pelvic rest, rest at home, and fluids. Maternal Triage Index - Maternal Triage Index Presenting for scheduled procedure w/no complaint: No - Stat/Priority 1 Stat Priority 1: No - Urgent/Priority 2 Urgent Priority 2: Yes Provider Notified: Zandra Muhammad Provider Notified Time: 17:06 Criteria Met for Priority 2: <34 with regular contractions, twin , baby B breech Disposition - Disposition OB Disposition: Physician follow up in office, Discharge to home, Written follow up instructions reviewed Discharge Date: 03/02/22 Discharge Time: 19:00 I agree with the RN Medical Screening Exam: Yes Case reviewed; plan agreed upon as documented in EMR&OBIX.: Yes Diagnosis: FALSE LABOR BEFORE 37 COMPLETED WEEKS OF GEST, THIRD TRI Additional Diagnoses: Patient was neither seen nor examined by me
== END 2022-03-02 19:00 | disposition home or self-care (01) ==
LOC: FBPOP 16:31
PROVIDERS: ATTEND Obstetrics & Gynecology
DX: O47.03 False labor before 37 completed weeks of gestation, third trimester (principal); Z3A.33 33 weeks gestation of pregnancy
CPT/HCPCS: 59025; 99214; 96360; 96372; J3105; 99213

== ENCOUNTER 2022-03-21 01:49 | Inpatient (IN) | payer BC ==
[2022-03-21] MEDS ORDERED: CITRIC ACID-SODIUM CITRATE 15 ML CUP PO ONE (02:36)
[2022-03-21 02:46] LABS: Basophils % (A) 0 %; Eosinophils # (A) 0.3 k/uL (0-0.7); Eosinophils % (A) 3 %; HCT 32.6 % (34.0-46.0); HGB 10.7 gm/dL (11.4-16.0); Hypochromasia Slight; Lymphocytes # (A) 1.7 k/uL (1.0-4.8); Lymphocytes % (A) 16 %; MCH 28.6 pg (25.0-35.0); MCHC 32.7 g/dL (31.0-37.0); MCV 87.5 fL (80.0-100.0); Mean Platelet Volume 8.4; Monocytes # (A) 0.6 k/uL (0-1.0); Monocytes % (A) 6 %; Neutrophils # (A) 7.8 k/uL (1.3-7.7); Neutrophils % (A) 73 %; Platelet Count 321 k/uL (150-450); RBC 3.72 m/uL (3.80-5.40); RDW 14.3 % (11.5-15.5); WBC 10.7 k/uL (3.8-10.6)
[2022-03-21] MEDS ORDERED: LACTATED RINGERS 1,000 ML IV ONE (02:48)
[2022-03-21] MEDS: LACTATED RINGERS 1,000 ML IV SCH ×5 (03:04→23:04)
--- NOTE | 2022-03-21 03:09 | P.HPOB ---
History of Present Illness H&P Date: 03/21/22 Chief Complaint: My water broke at 12:30 this morning, clear fluid This is a 36-year-old female 9 para 4044 EDC 04/16/2022 at 36-2/7 weeks who presents today with having her water broken at 12:30 AM. Patient has a known twin , second baby is breech position. In addition she is requesting bilateral tubal ligation. She is scheduled for later this month. Fetus is been active throughout the . Past medical history is significant for intermittent hypothyroidism, on no meds. Polycystic ovaries. Past surgical history right ankle reconstruction 2002. Current medications vitamins daily, baby aspirin daily, 200 mg progesterone twice daily. ALLERGIES none known. Family history significant for leukemia. Obstetric history is significant for vaginal deliveries 4, all full-term. Social history patient works for [employer], she is , she is a former tobacco smoker. She denies alcohol or drug use. Obstetric history significant for blood type O positive, rubella status immune. VDRL testing, urine culture, hepatitis B surface antigen, HIV testing, gonorrhea and chlamydia cultures all negative. One-hour Glucola 78. Group B strep culture status unknown. On exam patient is 5 foot 1 inch, 162 pounds, vital signs are stable and she is afebrile. The general physical exam is within normal limits. The abdomen is obviously gravid, fundal height greater than 40 cm, B is vertex to Neil maneuver with head maternal left upper quadrant. Cervix is 2 cm dilated, obvious ruptured membranes, clear fluid, long, floating presentation. Lungs are clear in all buchanan. Impression: 36-2/7 weeks intrauterine pregnancies, twin gestation, baby B breech. Undesired fertility. Patient's discussion with Dr. De Anda is such that she is planning section. Plan: We will proceed with primary low transverse section and bilateral tubal ligation. Consents signed. All questions answered. Antibiotics given. Staff and anesthesia aware. Review of Systems Constitutional: Reports as per HPI Past Medical History Past Medical History: No Reported History History of Any Multi-Drug Resistant Organisms: None Reported Past Surgical History: Orthopedic Surgery Past Anesthesia/Blood Transfusion Reactions: No Reported Reaction Smoking Status: Never smoker - Past Family History Father Family Medical History: Blood Disorder, Cancer Medications and Allergies Home Medications Medication Instructions Recorded Confirmed Type Pnv No.95/Ferrous Fum/Folic AC 1 tab PO DAILY 08/21/17 03/21/22 History [ Multivitamin Tablet] Aspirin [Adult Low Dose Aspirin EC] 81 mg PO DAILY 11/11/21 03/21/22 History Allergies Allergy/AdvReac Type Severity Reaction Status Date / Time No Known Allergies Allergy Verified 03/02/22 16:40 Exam Intake and Output 03/20/22 03/20/22 03/21/22 14:59 22:59 06:59 Other: Weight 73.482 kg See dictation under HPI please Results Result Diagrams: 03/21/22 02:20 Abnormal Lab Results - Last 24 Hours (Table) 03/21/22 Range/Units 02:20 WBC 10.7 H (3.8-10.6) k/uL RBC 3.72 L (3.80-5.40) m/uL Hgb 10.7 L (11.4-16.0) gm/dL Hct 32.6 L (34.0-46.0) % Neutrophils # 7.8 H (1.3-7.7) k/uL Assessment and Plan Assessment: 36-2/7 weeks intrauterine , twin gestation, breech presentation twin B. Undesired fertility. Group B strep culture status unknown. All signs otherwise reassuring. Plan: For primary low transverse section and bilateral tubal ligation. All risks and benefits both maternally and fetally discussed. All questions answered. Time with Patient: Less than 30
[2022-03-21] MEDS ORDERED: KETOROLAC 15 MG/ML 1 ML VIAL ONE (03:13)
[2022-03-21] MEDS ORDERED: NALBUPHINE 10 MG/ML (1 ML AMP) ONE (03:13)
[2022-03-21] MEDS ORDERED: OXYTOCIN 10 UNIT/ML 1 ML VIAL ONE (03:13)
[2022-03-21] MEDS ORDERED: diphenhydrAMINE 50 MG/ML 1 ML VIAL ONE (03:13)
[2022-03-21] MEDS ORDERED: ONDANSETRON 4 MG/2 ML VIAL ONE (03:13)
[2022-03-21] MEDS ORDERED: PHENYLEPHRINE-0.9% NACL SYG 1,000 MCG/10 ML SYRINGE ONE (03:13)
[2022-03-21] MEDS ORDERED: OXYTOCIN 30 UNITS/500 ML NS BAG IV ONE (03:13)
[2022-03-21] MEDS ORDERED: MORPHINE SULFATE (PF) 0.3 MG/0.3 ML SYR ONE (03:13)
[2022-03-21] MEDS ORDERED: NALOXONE 0.4 MG/ML 1 ML VIAL IV PRN ×2 (04:07→08:44)
[2022-03-21] MEDS ORDERED: ZOLPIDEM 5 MG TAB PO PRN (04:07)
[2022-03-21] MEDS ORDERED: SIMETHICONE 80 MG CHEWABLE PO PRN (04:07)
[2022-03-21] MEDS ORDERED: diphenhydrAMINE 50 MG CAP PO PRN (04:07)
[2022-03-21] MEDS ORDERED: ONDANSETRON 4 MG/2 ML VIAL IVP PRN (04:07)
[2022-03-21] MEDS ORDERED: METOCLOPRAMIDE 5 MG/ML 2 ML VIAL IVP PRN (04:07)
[2022-03-21] MEDS ORDERED: diphenhydrAMINE 50 MG/ML 1 ML VIAL IVP PRN ×2 (04:07)
[2022-03-21] MEDS ORDERED: diphenhydrAMINE 25 MG CAP PO PRN (04:07)
--- NOTE | 2022-03-21 04:07 | P.OP ---
Date of Procedure: 03/21/22 Preoperative Diagnosis: 36-2/7 weeks intrauterine , breech breech twin gestation, spontaneous amniorrhexis early labor. Postoperative Diagnosis: Same, liveborn female infants, breech and breech, normal-appearing uterus and tubes and ovaries Procedure(s) Performed: Primary low transverse section with tubal ligation utilizing Filshie clips Anesthesia: spinal Surgeon: Zandra Muhammad Box Fabricator #1: Carolyn Whitten Estimated Blood Loss (ml): 300 IV fluids (ml): 1,000 Urine output (ml): 250 Pathology: other (Placenta) Condition: stable Disposition: PACU Operative Findings: Baby A breech, 4 lbs. 13 oz., 2170 g, baby B 5 lbs. 2 oz., 2330 g, also breech presentation Description of Procedure: Patient is brought to the operating room where a spinal analgesia with Duramorph is administered. Antibiotics are given. Cedillo catheter to direct drainage. Bicitra given. The appropriate timeout is performed to assure proper patient and procedural identification. Abdomen is prepped and draped in usual sterile fashion. Analgesia is checked and noted to be adequate. A low transverse skin incision is made in this is carried down to the subcutaneous tissue which is onl y approximately 2 cm deep. Fascia is isolated, scored, extended bilaterally with curved Encarnacion scissors. Peritoneum is next identified and incised, there is no bowel or bladder involvement. Bladder flap was placed over the dome of the bladder and at all times the bladder is Well from the operative field to avoid bladder and/or ureteral injury. A low transverse uterine incision is made in this is taken down to the endometrial cavity. The incision is extended with blunt dissection in a transverse fashion. Infant a is delivered in a double footling breech presentation. Sacrum anterior. Pinard maneuver used to deliver the upper extremities. Head is delivered in a flexed position. Official time of baby a is 0330 hours. Umbilical cord is doubly clamped and ligated, she is handed to waiting nurses for evaluation where scores of 8 and 9 at one and 5 minutes respectively are given. Baby weighs 4 lbs. 13 oz. or 2170 g. Cord blood is sent to the lab for evaluation. Artificial amniorrhexis of sac be also reveals clear fluid. Baby B is also delivered in a double footling breech position, sacrum anterior. Pinard maneuver used for the upper extremities, head delivered in a flexed position. Official time of baby B is 0332 hours. Umbilical cord is doubly clamped and ligated, she is handed to waiting nurses for evaluation where scores of 8 and 9 at one and 5 minutes respectively are given. Cord blood is sent to the lab. Infant weighs 5 lbs. 2 oz. or 2330 g. The placentas are then delivered manually and are sent to pathology for evaluation. The cords are marked to differentiate a from B. The uterus is externalized and massaged. Oxytocin is given. The uterus is swept clean with a sterile sponge to avoid any retained products of conception. Uterus is closed in a two-step fashion, first layer running locking with 0 Vicryl, second layer imbricated also with 0 Vicryl suture. Hemostasis is excellent. Abdomen is suctioned with suction on guard posterior to the uterus. Filshie clips are now used in the isthmic portion of both tubes with care to traverse the entire diameter of the tubes into the mesal salpinx, fimbriated ends visualized on both. Ovaries appear normal. Uterus is gently placed back into the abdominal cavity. Bilateral gutters are inspected and cleaned. Peritoneum is allowed to close by secondary intention. Fascia is closed in a running stitch of 0 Vicryl with over ligation in the midline. Subcutaneous tissue is irrigated, clean and dry. Subcutaneous tissue is reapproximated with a running stitch of 3-0 Vicryl. 4-0 undyed Monocryl is used for final skin closure. Steri-Strips and Mastisol are applied to the wound. Cedillo is noted to be draining clear urine. All sponge needle and enhancement counts are correct. Patient is brought back to the recovery room in very good condition with stable vital signs including blood pressure 98/50, pulse 98, 100% O2 saturation. Patient is allowed to begin the bonding experience in the LDR with her baby's. Total estimated blood loss 300 mL's. Fluid replacement 1000 mL's. Urine output 250 mL of clear yellow urine.
[2022-03-21] MEDS: ACETAMINOPHEN TAB 500 MG TAB PO SCH ×3 (08:02→20:29)
[2022-03-21] MEDS: SENNOSIDES-DOCUSATE SODIUM 1 EACH TAB PO SCH ×2 (08:02→20:31)
[2022-03-21] MEDS ORDERED: MORPHINE SULFATE 2 MG/ML SYRINGE IVP PRN (08:44)
[2022-03-21] MEDS: IBUPROFEN 600 MG TAB PO SCH ×2 (11:03→16:58)
[2022-03-22] MEDS: ACETAMINOPHEN TAB 500 MG TAB PO SCH ×4 (04:34→21:45)
[2022-03-22] MEDS: IBUPROFEN 600 MG TAB PO SCH ×5 (04:35→23:20)
[2022-03-22 07:11] LABS: Basophils % (A) 0 %; Eosinophils # (A) 0.2 k/uL (0-0.7); Eosinophils % (A) 2 %; HCT 31.7 % (34.0-46.0); HGB 9.9 gm/dL (11.4-16.0); Hypochromasia Slight; Lymphocytes # (A) 0.9 k/uL (1.0-4.8); Lymphocytes % (A) 9 %; MCH 27.7 pg (25.0-35.0); MCHC 31.2 g/dL (31.0-37.0); Mean Platelet Volume 8.1; Monocytes # (A) 0.6 k/uL (0-1.0); Monocytes % (A) 5 %; Neutrophils # (A) 8.8 k/uL (1.3-7.7); Neutrophils % (A) 83 %; Platelet Count 274 k/uL (150-450); RBC 3.56 m/uL (3.80-5.40); WBC 10.6 k/uL (3.8-10.6)
[2022-03-22] MEDS: SENNOSIDES-DOCUSATE SODIUM 1 EACH TAB PO SCH ×2 (08:21→21:44)
--- NOTE | 2022-03-22 08:23 | P.PN ---
Progress Note - Text Date: 03/22/2022 Time: 07:52 The patient is status post section Vital signs stable VAS: 0-10 Patient has no complaints of pain. The patient incurred some minimal itching yesterday, this itching is now subsiding. Pain meds to be managed by service.
--- NOTE | 2022-03-22 10:10 | P.PN ---
Subjective Progress Note Date: 03/22/22 Principal diagnosis: Postoperative day number two Positive flatus, pain well tolerated. Minimal lochia rubra. Objective - Vital Signs Vital signs: Vital Signs Temp 98.3 F 03/22/22 08:00 Pulse 82 03/22/22 08:00 Resp 16 03/22/22 08:00 BP 117/75 03/22/22 08:00 Pulse Ox 98 03/22/22 00:00 FiO2 Intake & Output 03/21/22 03/22/22 03/22/22 18:59 06:59 18:59 Output Total 900 Balance -900 Output: Urine 900 Uretheral (Cedillo) 450 Other: Voiding Method Toilet # Voids 1 2 1 - Constitutional General appearance: Present: average body habitus, cooperative - EENT Eyes: Present: PERRLA ENT: Present: hearing grossly normal - Neck Neck: Present: normal ROM - Respiratory Respiratory: bilateral: CTA - Cardiovascular Rhythm: regular - Gastrointestinal General gastrointestinal: Present: normal bowel sounds - Genitourinary Genitourinary Comment(s): Incision clean and dry, intact, Steri-Strips applied. Fundus firm, midline, symmetric, 18 week size - Integumentary Integumentary: Present: normal - Neurologic Neurologic: Present: CNII-XII intact - Musculoskeletal Musculoskeletal: Present: gait normal - Psychiatric Psychiatric: Present: A&O x's 3, appropriate affect, intact judgment & insight - Labs CBC & Chem 7: 03/22/22 06:52 Labs: Abnormal Lab Results - Last 24 Hours (Table) 03/22/22 Range/Units 06:52 RBC 3.56 L (3.80-5.40) m/uL Hgb 9.9 L (11.4-16.0) gm/dL Hct 31.7 L (34.0-46.0) % Neutrophils # 8.8 H (1.3-7.7) k/uL Lymphocytes # 0.9 L (1.0-4.8) k/uL Assessment and Plan Assessment: Doing well second postoperative day Plan: Continue care. Likely discharge home tomorrow morning. Time with Patient: Less than 30
[2022-03-23] MEDS: ACETAMINOPHEN TAB 500 MG TAB PO SCH ×2 (03:01→08:41)
[2022-03-23] MEDS: IBUPROFEN 600 MG TAB PO SCH (06:28)
[2022-03-23] MEDS: SENNOSIDES-DOCUSATE SODIUM 1 EACH TAB PO SCH (08:42)
[2022-03-23 08:59] VITALS: BP 131/75; PULSE 80; RESP 14; TEMP 98.4
--- NOTE | 2022-03-23 08:59 | P.DS ---
Providers Date of admission: 03/21/22 02:12 Expected date of discharge: 03/23/22 Attending physician: Tay Munguia Primary care physician: Stated None - Discharge Diagnosis(es) (1) Active labor Current Visit: Yes Status: Acute (2) Breech presentation Current Visit: Yes Status: Acute (3) Status post section Current Visit: Yes Status: Acute (4) Twin Current Visit: No Status: Acute Hospital Course: The patient is a 36-year-old 9 para 4044 admitted at 36-2/7 weeks by good dating parameters. She has a known twin and presents with spontaneous rupture of membranes. Both babies have been in breech presentation to this point and the patient understands the section is necessary. She additionally requested intraoperative tubal ligation. She was taken the operating room where she underwent primary low-transverse sections and was delivered of a viable twin A baby girl weighing 4 pounds and 13 ounces with Apgars of 8 at 1 minute and 9 at 5 minutes in the breech presentation followed by twin B, baby girl, weighing 5 lbs. 2 oz. with Apgars of 8 at 1 minute and 9 at 5 minutes delivered in the breech presentation. Her and postoperative course was unremarkable with vital signs remaining stable and her temperature was afebrile throughout. She was deemed stable for discharge on day #2 and was discharged home to follow-up in the office in 2 weeks for an incision check and 6 weeks routinely. Discharge instructions included calling for any significantly increased bleeding or foul-smelling lochia, significantly increased fever abdominal pain, perineal complaints, breast complaints, incisional complaints, or anything else that concerned her. She was additionally instructed to have nothing in the vagina for at least 6 weeks time to include intercourse. She understood all of her instructions and agrees follow-up as noted above. Discharge medications included continued vitamins as she is opted to breast-feed. She additionally was to use [id number] analgesic pain medications as needed but was provided with a prescription for Tylenol 3, 1-2 by mouth every 6 hours when necessary pain, #20 dispensed with no refills. Maternal blood type is O+ and rubella status is immune. Discharge hemoglobin and hematocrit were 9.9 and 31.7 respectively. Procedures: #1. Primary low-transverse section #2. Intraoperative bilateral tubal occlusion using Filshie clips Patient Condition at Discharge: Stable Plan - Discharge Summary New Discharge Prescriptions: No Action Pnv No.95/Ferrous Fum/Folic AC [ Multivitamin Tablet] 1 tab PO DAILY Aspirin [Adult Low Dose Aspirin EC] 81 mg PO DAILY Discharge Medication List Pnv No.95/Ferrous Fum/Folic AC [ Multivitamin Tablet] 1 tab PO DAILY 08/21/17 [History] Aspirin [Adult Low Dose Aspirin EC] 81 mg PO DAILY 11/11/21 [History] Follow up Appointment(s)/Referral(s): Tay Munguia MD [STAFF PHYSICIAN] - 2 Weeks Discharge Disposition: HOME SELF-CARE
== END 2022-03-23 12:04 | disposition home or self-care (01) | DRG 783 ==
LOC: FBPOP 01:49 → 4FBP 02:12
PROVIDERS: ADMIT Obstetrics & Gynecology; ATTEND Obstetrics & Gynecology
PROC: 0UB70ZZ Excision of Bilateral Fallopian Tubes, Open Approach (ICD-10-PCS; 2022-03-21)
PROC: 10D00Z1 Extraction of Products of Conception, Low, Open Approach (ICD-10-PCS; principal; 2022-03-21 03:11)
DX: O30.003 Twin pregnancy, unspecified number of placenta and unspecified number of amniotic sacs, third trimester (principal); O60.14X0 Preterm labor third trimester with preterm delivery third trimester, not applicable or unspecified; O32.1XX1 Maternal care for breech presentation, fetus 1; E03.9 Hypothyroidism, unspecified; E28.2 Polycystic ovarian syndrome; O99.284 Endocrine, nutritional and metabolic diseases complicating childbirth; Z30.2 Encounter for sterilization; Z37.2 Twins, both liveborn; Z3A.36 36 weeks gestation of pregnancy; Z79.82 Long term (current) use of aspirin; Z87.891 Personal history of nicotine dependence
CPT/HCPCS: 59025; 84112; 85025; 86850; 86900; 86901; 88307; 99213

== ENCOUNTER 2022-12-28 10:24 | Observation (INO) | payer BC ==
[2022-12-28] MEDS ORDERED: SODIUM CHLORIDE 0.9% 1,000 ML IV STA (10:25)
[2022-12-28] MEDS ORDERED: KETOROLAC 15 MG/ML 1 ML VIAL IVP STA (10:25)
--- NOTE | 2022-12-28 10:30 | ED ---
General Adult HPI - General Stated complaint: right lower ABD pain Time Seen by Provider: 12/28/22 10:25 Source: patient, RN notes reviewed Mode of arrival: ambulatory Limitations: no limitations - History of Present Illness Initial comments: Patient is a pleasant 37-year-old female presenting to the emergency department with concerns with abdominal pain. Onset of symptoms was 3 days ago. Symptoms have slowly worsened. Patient has discomfort mostly right lower abdomen. Nam johnson does have history of ovarian cysts however this feels different. Patient has some mild nausea. No vomiting. No fever. - Related Data Home Medications Medication Instructions Recorded Confirmed Pnv No.95/Ferrous Fum/Folic AC 1 tab PO DAILY 08/21/17 03/21/22 [ Multivitamin Tablet] Aspirin [Adult Low Dose Aspirin EC] 81 mg PO DAILY 11/11/21 03/21/22 Allergies Allergy/AdvReac Type Severity Reaction Status Date / Time No Known Allergies Allergy Verified 03/02/22 16:40 Review of Systems ROS Statement: Those systems with pertinent positive or pertinent negative responses have been documented in the HPI. ROS Other: All systems not noted in ROS Statement are negative. Constitutional: Denies: fever Eyes: Denies: eye pain ENT: Denies: ear pain Respiratory: Denies: cough Cardiovascular: Denies: chest pain Endocrine: Denies: fatigue Gastrointestinal: Reports: as per HPI, abdominal pain, nausea. Denies: vomiting Genitourinary: Denies: dysuria Musculoskeletal: Denies: back pain Skin: Denies: rash Neurological: Denies: weakness Past Medical History Past Medical History: No Reported History History of Any Multi-Drug Resistant Organisms: None Reported Past Surgical History: Orthopedic Surgery Past Anesthesia/Blood Transfusion Reactions: No Reported Reaction Smoking Status: Never smoker - Past Family History Father Family Medical History: Blood Disorder, Cancer General Exam Limitations: no limitations General appearance: alert, in no apparent distress Head exam: Present: normocephalic Eye exam: Present: normal appearance Neck exam: Present: normal inspection Respiratory exam: Present: normal lung sounds bilaterally Cardiovascular Exam: Present: regular rate, normal rhythm GI/Abdominal exam: Present: soft, tenderness (Moderate tenderness right lower quadrant). Absent: distended, rigid, pulsatile mass Extremities exam: Present: normal inspection Neurological exam: Present: alert Psychiatric exam: Present: normal affect, normal mood Skin exam: Present: normal color Course Vital Signs 12/28/22 12/28/22 10:25 13:06 Temperature 98.0 F 97.0 F L Pulse Rate 97 70 Respiratory 18 18 Rate Blood Pressure 121/64 108/70 O2 Sat by Pulse 98 94 L Oximetry Medical Decision Making - Medical Decision Making Was pt. sent in by a medical professional or institution (, NAM, HEALTH COUNSELOR, urgent care, hospital, or skilled nursing...) When possible be specific @ -No Did you speak to anyone other than the patient for history (EMS, parent, family, police, friend...)? What history was obtained from this source @ -No Did you review nursing and triage notes (agree or disagree)? Why? @ -I reviewed and agree with nursing and triage notes Were old charts reviewed (outside hosp., previous admission, EMS record, old EKG, old radiological studies, urgent care reports/EKG's, skilled nursing records)? Report findings @ -No old charts were reviewed Differential Diagnosis (chest pain, altered mental status, abdominal pain women, abdominal pain men, vaginal bleeding, weakness, fever, dyspnea, syncope, headache, dizziness, GI bleed, back pain, seizure, CVA, palpatations, mental health)? @ -Differential Abdominal Pain Women: Appendicitis, Cholecystitis, diverticulosis, ischemic bowel, pancreatitis, hepatitis, UTI, gastroenteritis, AAA, incarcerated hernia, bowel obstruction, constipation, inflammatory bowel, hepatitis, peptic ulcer disease, splenic infarction, perforated viscus, vulvitis, ovarian torsion, PID, kidney stone, placenta abruption, this is not meant to be an all-inclusive list EKG interpreted by me (3pts min.). @ -As above X-rays interpreted by me (1pt min.). @ -None done CT interpreted by me (1pt min.). @ -Report reviewed U/S interpreted by me (1pt. min.). @ -None done What testing was considered but not performed or refused? (CT, X-rays, U/S, labs)? Why? @ -None What meds were considered but not given or refused? Why? @ -None Did you discuss the management of the patient with other professionals (professionals i.e. NAM Beltran, HEALTH COUNSELOR, lab, RT, psych nurse, social sciences professor, airplane cabin attendant, teacher, police liaison officer, case therapist)? Give summary @ -Case was discussed with Dr. Akhtar who will evaluate an old fracture patient Was smoking cessation discussed for >3mins.? @ -No Was critical care preformed (if so, how long)? @ -No Were there social determinants of health that impacted care today? How? (Homelessness, low income, unemployed, alcoholism, drug addiction, transpor tation, low edu. Level, literacy, decrease access to med. care, custodial, rehab)? @ -No Was there de-escalation of care discussed even if they declined (Discuss DNR or withdrawal of care, Hospice)? DNR status @ -No What co-morbidities impacted this encounter? (DM, HTN, Smoking, COPD, CAD, Cancer, CVA, ARF, Chemo, Hep., AIDS, mental health diagnosis, sleep apnea, morbid obesity)? @ -None Was patient admitted / discharged? Hospital course, mention meds given and route, prescriptions, significant lab abnormalities, going to OR and other pertinent info. @ -Patient reevaluated twice and still having discomfort. Patient will be kept for observation and reevaluation. Undiagnosed new problem with uncertain prognosis? @ -No Drug Therapy requiring intensive monitoring for toxicity (Heparin, Nitro, Insulin, Cardizem)? @ -No Were any procedures done? @ -No Diagnosis/symptom? @ -Abdominal pain Acute, or Chronic, or Acute on Chronic? @ -Acute Uncomplicated (without systemic symptoms) or Complicated (systemic symptoms)? @ -default Side effects of treatment? @ -No Exacerbation, Progression, or Severe Exacerbation? @ -No Poses a threat to life or bodily function? How? (Chest pain, [place], [place], pneumonia, PE, COPD, DKA, ARF, appy, cholecystitis, CVA, Diverticulitis, Homicidal, Suicidal, threat to staff... and all critical care pts) @ -No - Lab Data Result diagrams: 12/28/22 10:33 12/28/22 10:33 Lab Results 12/28/22 12/28/22 12/28/22 Range/Units 10:33 10:33 10:33 WBC 6.3 (3.8-10.6) k/uL RBC 4.36 (3.80-5.40) m/uL Hgb 12.7 (11.4-16.0) gm/dL Hct 37.9 (34.0-46.0) % MCV 87.0 (80.0-100.0) fL MCH 29.2 (25.0-35.0) pg MCHC 33.6 (31.0-37.0) g/dL RDW 13.1 (11.5-15.5) % Plt Count 274 (150-450) k/uL MPV 7.1 Neutrophils % 62 % Lymphocytes % 27 % Monocytes % 6 % Eosinophils % 4 % Basophils % 1 % Neutrophils # 3.9 (1.3-7.7) k/uL Lymphocytes # 1.7 (1.0-4.8) k/uL Monocytes # 0.4 (0-1.0) k/uL Eosinophils # 0.2 (0-0.7) k/uL Basophils # 0.0 (0-0.2) k/uL PT 10.1 (9.0-12.0) sec INR 0.9 (<1.2) APTT 25.3 (22.0-30.0) sec Sodium (137-145) mmol/L Potassium (3.5-5.1) mmol/L Chloride (98-107) mmol/L Carbon Dioxide (22-30) mmol/L Anion Gap mmol/L BUN (7-17) mg/dL Creatinine (0.52-1.04) mg/dL Est GFR (CKD-EPI)AfAm (>60 ml/min/1.73 sqM) Est GFR (CKD-EPI)NonAf (>60 ml/min/1.73 sqM) Glucose (74-99) mg/dL Calcium (8.4-10.2) mg/dL Total Bilirubin (0.2-1.3) mg/dL AST (14-36) U/L ALT (4-34) U/L Alkaline Phosphatase (38-126) U/L Total Protein (6.3-8.2) g/dL Albumin (3.5-5.0) g/dL Amylase (30-110) U/L Lipase (23-300) U/L HCG, Quant mIU/mL Urine Color Light Yellow Urine Appearance Cloudy H (Clear) Urine pH 6.0 (5.0-8.0) Ur Specific Banco 1.010 (1.001-1.035) Urine Protein Negative (Negative) Urine Glucose (UA) Negative (Negative) Urine Ketones Negative (Negative) Urine Blood Negative (Negative) Urine Nitrite Negative (Negative) Urine Bilirubin Negative (Negative) Urine Urobilinogen <2.0 (<2.0) mg/dL Ur Leukocyte Esterase Negative (Negative) Urine RBC 1 (0-5) /hpf Urine WBC 1 (0-5) /hpf Ur Squamous Epith Cells 13 H (0-4) /hpf Urine Mucus Rare H (None) /hpf 12/28/22 Range/Units 10:33 WBC (3.8-10.6) k/uL RBC (3.80-5.40) m/uL Hgb (11.4-16.0) gm/dL Hct (34.0-46.0) % MCV (80.0-100.0) fL MCH (25.0-35.0) pg MCHC (31.0-37.0) g/dL RDW (11.5-15.5) % Plt Count (150-450) k/uL MPV Neutrophils % % Lymphocytes % % Monocytes % % Eosinophils % % Basophils % % Neutrophils # (1.3-7.7) k/uL Lymphocytes # (1.0-4.8) k/uL Monocytes # (0-1.0) k/uL Eosinophils # (0-0.7) k/uL Basophils # (0-0.2) k/uL PT (9.0-12.0) sec INR (<1.2) APTT (22.0-30.0) sec Sodium 142 (137-145) mmol/L Potassium 4.2 (3.5-5.1) mmol/L Chloride 106 (98-107) mmol/L Carbon Dioxide 26 (22-30) mmol/L Anion Gap 10 mmol/L BUN 12 (7-17) mg/dL Creatinine 0.60 (0.52-1.04) mg/dL Est GFR (CKD-EPI)AfAm >90 (>60 ml/min/1.73 sqM) Est GFR (CKD-EPI)NonAf >90 (>60 ml/min/1.73 sqM) Glucose 73 L (74-99) mg/dL Calcium 9.5 (8.4-10.2) mg/dL Total Bilirubin 0.5 (0.2-1.3) mg/dL AST 26 (14-36) U/L ALT 28 (4-34) U/L Alkaline Phosphatase 87 (38-126) U/L Total Protein 7.4 (6.3-8.2) g/dL Albumin 4.6 (3.5-5.0) g/dL Amylase 62 (30-110) U/L Lipase 85 (23-300) U/L HCG, Quant <2.4 mIU/mL Urine Color Urine Appearance (Clear) Urine pH (5.0-8.0) Ur Specific Banco (1.001-1.035) Urine Protein (Negative) Urine Glucose (UA) (Negative) Urine Ketones (Negative) Urine Blood (Negative) Urine Nitrite (Negative) Urine Bilirubin (Negative) Urine Urobilinogen (<2.0) mg/dL Ur Leukocyte Esterase (Negative) Urine RBC (0-5) /hpf Urine WBC (0-5) /hpf Ur Squamous Epith Cells (0-4) /hpf Urine Mucus (None) /hpf Disposition Clinical Impression: Abdominal pain Disposition: ADMITTED IP TO THIS HOSP Is patient prescribed a controlled substance at d/c from ED?: No Referrals: None,Stated [Primary Care Provider] - 1-2 days Time of Disposition: 14:37
[2022-12-28 11:16] LABS: Basophils % (A) 1 %; Eosinophils # (A) 0.2 k/uL (0-0.7); Eosinophils % (A) 4 %; HCT 37.9 % (34.0-46.0); HGB 12.7 gm/dL (11.4-16.0); Lymphocytes # (A) 1.7 k/uL (1.0-4.8); Lymphocytes % (A) 27 %; MCH 29.2 pg (25.0-35.0); MCHC 33.6 g/dL (31.0-37.0); Mean Platelet Volume 7.1; Monocytes # (A) 0.4 k/uL (0-1.0); Monocytes % (A) 6 %; Neutrophils # (A) 3.9 k/uL (1.3-7.7); Neutrophils % (A) 62 %; Platelet Count 274 k/uL (150-450); RBC 4.36 m/uL (3.80-5.40); RDW 13.1 % (11.5-15.5); WBC 6.3 k/uL (3.8-10.6)
[2022-12-28 11:33] LABS: INR 0.9 (<1.2); Partial Thromboplastin Time 25.3 sec (22.0-30.0); Prothrombin Time 10.1 sec (9.0-12.0)
[2022-12-28 11:47] LABS: ALT 28 U/L (4-34); AST 26 U/L (14-36); African American GFR (CKD) >90 (>60 ml/min/1.73 sqM); Albumin 4.6 g/dL (3.5-5.0); Alkaline Phosphatase 87 U/L (38-126); Amylase 62 U/L (30-110); Anion Gap 10 mmol/L; Blood Urea Nitrogen 12 mg/dL (7-17); Calcium 9.5 mg/dL (8.4-10.2); Carbon Dioxide 26 mmol/L (22-30); Chloride 106 mmol/L (98-107); Glucose 73 mg/dL (74-99); Lipase 85 U/L (23-300); Non-African American GFR(CKD) >90 (>60 ml/min/1.73 sqM); Potassium 4.2 mmol/L (3.5-5.1); Sodium 142 mmol/L (137-145); Total Bilirubin 0.5 mg/dL (0.2-1.3); Total Protein 7.4 g/dL (6.3-8.2)
--- NOTE | 2022-12-28 11:56 | CT ---
EXAMINATION TYPE: CT abdomen pelvis w con DATE OF EXAM: 12/28/2022 HISTORY: RLQ pain CT DLP: 569mGycm Automated Exposure Control for Dose Reduction was Utilized. CONTRAST: CT scan of the abdomen and pelvis is performed without oral and with IV Contrast, patient injected wi th 100 mL of Isovue 300. COMPARISON: Prior CT April 24, 2020 FINDINGS: LUNG BASES: No significant abnormality is appreciated. LIVER/GB: No significant abnormality is appreciated. PANCREAS: No significant abnormality is seen. SPLEEN: No significant abnormality is seen. ADRENALS: No significant abnormality is seen. KIDNEYS: No significant abnormality is seen. BOWEL: Suboptimal evaluation without enteric contrast. No suspicious small or large bowel dilatation. , Ileum appears within normal limits near coronal image 49. Normal or abnormal appendix not well seen . No inflammatory changes adjacent cecum is identified however. UTERUS/ADNEXA: Anteverted uterus is redemonstrated. Prominent adnexal vessels bilaterally are noted. There are 2 inferior right pelvic phleboliths redemonstrated. LYMPH NODES: No greater than 1cm abdominal or pelvic lymph nodes are appreciated. OSSEOUS STRUCTURES: No significant abnormality is seen. OTHER: Patent celiac artery and SMA. Patent bilateral single renal arteries. IMPRESSION: Cannot exclude pelvic congestion syndrome. Correlate clinically otherwise no acute findin gs are evident. Is Appendix surgically absent?
[2022-12-28 11:58] LABS: HCG,Quantitative Serum <2.4 mIU/mL
[2022-12-28] MEDS ORDERED: HYDROmorphone 0.5 MG/0.5 ML SYRINGE IVP STA (12:52)
[2022-12-28 13:36] LABS: Appearance,Urine Cloudy (Clear); Bilirubin,Urine Negative (Negative); Blood,Urine Negative (Negative); Color,Urine Light Yellow; Glucose,Urine (UA) Negative (Negative); Ketones,Urine Negative (Negative); Leukocyte Esterase,Urine Negative (Negative); Mucus,Urine Rare /hpf; Nitrite,Urine Negative (Negative); Protein,Urine Negative (Negative); RBC,Urine 1 /hpf (0-5); Squamous Epithelial Cell,Urine 13 /hpf (0-4); Urobilinogen,Urine <2.0 mg/dL (<2.0); WBC,Urine 1 /hpf (0-5)
[2022-12-28] MEDS ORDERED: NALOXONE 0.4 MG/ML 1 ML VIAL IV PRN (14:38)
[2022-12-28] MEDS ORDERED: MORPHINE SULFATE 2 MG/ML SYRINGE IV PRN (14:38)
[2022-12-28] MEDS ORDERED: ONDANSETRON 4 MG/2 ML VIAL IVP PRN (14:38)
[2022-12-28] MEDS ORDERED: KETOROLAC 15 MG/ML 1 ML VIAL IVP PRN (14:38)
[2022-12-28] MEDS: PANTOPRAZOLE 40 MG/10 ML VIAL IV SCH (15:09)
--- NOTE | 2022-12-28 15:27 | P.GSHP ---
History of Present Illness H&P Date: 12/28/22 Chief Complaint: Right lower quadrant pain This is a 37-year-old female who has a three-day history of right lower quadrant pain. Patient was at work today. Patient works as a laborer airport maintenance. Patient presented to the hospital with complaints of severe right lower quadrant pain. Her CAT scan does not show any evidence acute appendicitis. Her white count was normal. However her appendix is not visualized. Past Medical History Past Medical History: No Reported History History of Any Multi-Drug Resistant Organisms: None Reported Past Surgical History: Orthopedic Surgery Past Anesthesia/Blood Transfusion Reactions: No Reported Reaction Smoking Status: Never smoker - Past Family History Father Family Medical History: Blood Disorder, Cancer Medications and Allergies Home Medications Medication Instructions Recorded Confirmed Type Pnv No.95/Ferrous Fum/Folic AC 1 tab PO DAILY 08/21/17 03/21/22 History [ Multivitamin Tablet] Aspirin [Adult Low Dose Aspirin EC] 81 mg PO DAILY 11/11/21 03/21/22 History Allergies Allergy/AdvReac Type Severity Reaction Status Date / Time No Known Allergies Allergy Verified 03/02/22 16:40 Surgical - Exam Vital Signs Temp Pulse Resp BP Pulse Ox 98.0 F 97 18 121/64 98 12/28/22 10:25 12/28/22 10:25 12/28/22 10:25 12/28/22 10:25 12/28/22 10:25 - General well developed, well nourished, moderate distress - Eyes PERRL - ENT normal pinna - Neck no masses - Respiratory normal expansion - Cardiovascular Rhythm: regular - Abdomen Significant tenderness right lower quadrant. There is no rebound. Abdomen: soft Results - Labs 12/28/22 10:33 12/28/22 10:33 Abnormal Lab Results - Last 24 Hours (Table) 12/28/22 12/28/22 Range/Units 10:33 10:33 Glucose 73 L (74-99) mg/dL Urine Appearance Cloudy H (Clear) Ur Squamous Epith Cells 13 H (0-4) /hpf Urine Mucus Rare H (None) /hpf Diabetes panel 12/28/22 Range/Units 10:33 Sodium 142 (137-145) mmol/L Potassium 4.2 (3.5-5.1) mmol/L Chloride 106 (98-107) mmol/L Carbon Dioxide 26 (22-30) mmol/L BUN 12 (7-17) mg/dL Creatinine 0.60 (0.52-1.04) mg/dL Glucose 73 L (74-99) mg/dL Calcium 9.5 (8.4-10.2) mg/dL AST 26 (14-36) U/L ALT 28 (4-34) U/L Alkaline Phosphatase 87 (38-126) U/L Total Protein 7.4 (6.3-8.2) g/dL Albumin 4.6 (3.5-5.0) g/dL Calcium panel 12/28/22 Range/Units 10:33 Calcium 9.5 (8.4-10.2) mg/dL Albumin 4.6 (3.5-5.0) g/dL Pituitary panel 12/28/22 Range/Units 10:33 Sodium 142 (137-145) mmol/L Potassium 4.2 (3.5-5.1) mmol/L Chloride 106 (98-107) mmol/L Carbon Dioxide 26 (22-30) mmol/L BUN 12 (7-17) mg/dL Creatinine 0.60 (0.52-1.04) mg/dL Glucose 73 L (74-99) mg/dL Calcium 9.5 (8.4-10.2) mg/dL Adrenal panel 12/28/22 Range/Units 10:33 Sodium 142 (137-145) mmol/L Potassium 4.2 (3.5-5.1) mmol/L Chloride 106 (98-107) mmol/L Carbon Dioxide 26 (22-30) mmol/L BUN 12 (7-17) mg/dL Creatinine 0.60 (0.52-1.04) mg/dL Glucose 73 L (74-99) mg/dL Calcium 9.5 (8.4-10.2) mg/dL Total Bilirubin 0.5 (0.2-1.3) mg/dL AST 26 (14-36) U/L ALT 28 (4-34) U/L Alkaline Phosphatase 87 (38-126) U/L Total Protein 7.4 (6.3-8.2) g/dL Albumin 4.6 (3.5-5.0) g/dL Assessment and Plan Assessment: Right lower quadrant pain. Patient will be observed. This may be early appendicitis. Patient also have a ultrasound the pelvis performed tonight for possible ovarian cyst.
--- NOTE | 2022-12-28 15:35 | US ---
EXAMINATION TYPE: US transvaginal DATE OF EXAM: 12/28/2022 COMPARISON: Same day CT CLINICAL HISTORY: pelvic pain. Pelvic pain, same day CT TECHNIQUE: Transvaginal (TV). Transvaginal sonographic images of the pelvis were acquired. Date of LMP: Pt states March 2021, pt is 9 months post , breast feeding EXAM MEASUREMENTS: Uterus: 8.1 x 2.8 x 4.8 cm Endometrial Stripe: 0.2 cm Right Ovary: 2.7 x 1.7 x 1.9 cm Left Ovary: 2.5 x 1.6 x 1.6 cm 1. Uterus: Anteverted wnl 2. Endometrium: wnl 3. Right Ovary: wnl 4. Left Ovary: wnl Spectral, color and waveform doppler imaging shows good arterial and venous flow within the ovaries ; 5. Bilateral Adnexa: Dilated blood vessels within bilateral adnexa consistent with possible pelvic c ongestion visualized on CT 6. Posterior cul-de-sac: Small amount of free fluid Heterogeneous uterus. Trace free fluid in the pelvis on ultrasound is less well-seen on CT. Ovaries are symmetric and normal in size with a few peripheral follicles. Prominent adnexal vessels n oted by technologist during real-time scanning are less well seen on images saved. IMPRESSION: Tiny amount free fluid in pelvis is nonspecific finding not clearly seen on CT. Thinning of the endometrial stripe is noted.
[2022-12-28] MEDS: SODIUM CHLORIDE 0.9% 1,000 ML IV SCH (15:52)
[2022-12-29 03:38] VITALS: PULSE 75
[2022-12-29] MEDS: SODIUM CHLORIDE 0.9% 1,000 ML IV SCH ×2 (04:23→06:47)
[2022-12-29 07:58] VITALS: BP 95/61; RESP 18; TEMP 98
[2022-12-29] MEDS: PANTOPRAZOLE 40 MG/10 ML VIAL IV SCH (08:38)
[2022-12-29 10:59] LABS: Basophils # (A) 0.07 X 10*3/uL (0.00-0.10); Basophils % (A) 1.3 %; Eosinophils # (A) 0.27 X 10*3/uL (0.04-0.35); Eosinophils % (A) 4.9 %; HGB 11.1 g/dL (12.0-15.0); Immature Grans, Automated 0 %; Lymphocytes # (A) 1.93 X 10*3/uL (0.90-5.00); MCHC 31.7 g/dL (32.0-37.0); MCV 88.4 fL (80.0-97.0); Monocytes # (A) 0.51 X 10*3/uL (0.20-1.00); Monocytes % (A) 9.2 %; NRBC Per 100 WBC 0 /100 WBCS (0.0-0.0); Neutrophils # (A) 2.74 X 10*3/uL (1.80-7.70); Neutrophils % (A) 49.6 %; Platelet Count 265 X 10*3/uL (140-440); RBC 3.96 X 10*6/uL (4.10-5.20); RDW 13.5 % (11.5-14.5); WBC 5.52 X 10*3/uL (4.50-10.00)
[2022-12-29 11:51] LABS: African American GFR (CKD) 130.1 (60.0-200.0); Albumin 4.1 g/dL (3.8-4.9); Albumin/Globulin Ratio 1.86 (1.60-3.17); Anion Gap 8.8 mmol/L (10.00-18.00); BUN/Creat Ratio 15.86 Ratio (12.00-20.00); Blood Urea Nitrogen 11.1 mg/dL (9.0-27.0); Calcium 9.2 mg/dL (8.7-10.3); Carbon Dioxide 26.2 mmol/L (20.0-27.5); Globulin 2.2 g/dL (1.6-3.3); Non-African American GFR(CKD) 112.3 (60.0-200.0); Total Bilirubin 0.5 mg/dL (0.30-1.20); Total Protein 6.3 g/dL (6.2-8.2)
--- NOTE | 2022-12-29 13:05 | P.DS ---
Providers Date of admission: 12/28/22 14:41 Expected date of discharge: 12/29/22 Attending physician: Damien Akhtar Primary care physician: Stated None Hospital Course: Discharge diagnosis 1. Right lower quadrant abdominal pain 2. Dilated blood vessels within bilateral adnexa consistent with possible pelvic congestion noted on ultrasound and CAT scan Hospital course This is a 37-year-old female who presented to hospital with complaints of right lower quadrant abdominal pain for the last 3 days. She does have a history of ovarian cysts. Patient had computed tomography scan that could not exclude pelvic congestion syndrome. Appendix was not visualized. Patient had abdominal ultrasound that did show tiny amount of free fluid in the pelvis was nonspecific. Dilated blood vessels within the bilateral adnexa consistent with possible pelvic congestion. Patient was observed overnight. Pain has shown some improvement. She is afebrile. White count is within normal range. Patient feels her pain is stable for discharge. She is up and ambulating. She is tolerating diet. Patient will be discharged home today. Patient has been educated that if pain increases or she starts to have fevers she needs to present back to the ER. Patient will follow-up with Dr. Akhtar in 1 week. Physician Powder Operator note has been reviewed by physician. Signing provider agrees with the documented findings, assessment, and plan of care. Patient Condition at Discharge: Stable Plan - Discharge Summary New Discharge Prescriptions: New Acetaminophen Tab [Tylenol Tab] 650 mg PO Q4H PRN #30 tablet PRN Reason: Pain Ibuprofen [Motrin] 600 mg PO Q8HR PRN #30 tab PRN Reason: Pain Discharge Medication List Acetaminophen Tab [Tylenol Tab] 650 mg PO Q4H PRN #30 tablet 12/29/22 [Rx] Ibuprofen [Motrin] 600 mg PO Q8HR PRN #30 tab 12/29/22 [Rx] Follow up Appointment(s)/Referral(s): None,Stated [Primary Care Provider] - 1-2 days Damien Akhtar MD [STAFF PHYSICIAN] - 1 Week Discharge Disposition: HOME SELF-CARE
== END 2022-12-29 14:13 | disposition home or self-care (01) ==
LOC: EC 10:24 → 6NMEDSUR 14:41
PROVIDERS: ADMIT Surgery; ATTEND Surgery
DX: R10.31 Right lower quadrant pain (principal); I99.8 Other disorder of circulatory system; Z80.8 Family history of malignant neoplasm of other organs or systems; Z98.890 Other specified postprocedural states; Z79.82 Long term (current) use of aspirin
CPT/HCPCS: 96376 ×2; 96361 ×2; 96374; 96375; 99285; 36415; 80053 ×2; 82150; 83690 ×2; 85025 ×2; 85610; 85730; 81001; 84702; 93975; 76830; 74177; G0378 ×2; J2405; J2270; J1885; C9113 ×2; J1170; Q9967